=== PATIENT | male | born 1935 | race Caucasian/White ===

== ENCOUNTER → 2017-08-23 10:25 | Outpatient (CLI) | payer MEDICARE, OTHER, SELFPAY ==
[2017-08-23 12:13] LABS: Absolute Lymphocyte Count 1.14 X10^3/ul (0.83-4.51); Absolute Neutrophil Count 4.3 X10^3/uL (2.0-7.7); Basophil# 0.07 X10^3/uL; Basophil% 1.1 % (0-1); Eosinophil# 0.35 X10^3/uL; Eosinophils% 5.4 % (0-5); Lymphocyte # 1.14 X10^3/ul (4.0); Lymphocyte % 17.5 % (19-41); Mean Corp Hgb Conc 33.5 g/gl (32-36); Mean Corpuscular Hgb 30.7 pg (27.0-32.0); Mean Corpuscular Volume 91.6 fL (80-94); Mean Platelet Vol. 10.4 fl (6.2-12.0); Monocyte# 0.58 X10^3/uL; Monocyte% 8.9 % (0-10); Neutrophil % 66.2 % (47-70); Platelet Count 202 K/mm3 (150-450); RBC Distribution Width CV 15.2 % (11.6-14.6); RBC Distribution Width SD 50.6 fl (35.1-43.9); Red Blood Count 6.09 M/mm3 (4.6-6.2); White Blood Count 6.5 K/mm3 (4.4-11.0)
[2017-08-23 12:29] LABS: Hemoglobin A1c 5.7 % (4.2-6.3)
[2017-08-23 12:35] LABS: ALB/GLOB Ratio 1.4 RATIO (0.9-2.4); AST(SGOT) 25 U/L (15-37); Alanine Aminotransfer ALT/SGPT 45 U/L (16-61); Albumin, Serum 4.2 g/dL (3.2-5.0); Alkaline Phosphatase 69 U/L (45-117); Anion Gap 6 (5-15); BUN 20 mg/dL (7-18); BUN/Creat Ratio 18.7 RATIO (10-20); Calcium,Total 8.8 mg/dL (8.5-10.1); Chloride 103 mmol/L (98-107); Creatinine, Serum 1.07 mg/dL (0.70-1.30); EST Glomerular Filtration Rate 71 mL/min (>60); Est Glom Filt Rate - Afr Amer 85 mL/min (>60); Globulin 3.1 g/dL (2.2-4.2); Glucose 99 mg/dL (70-110); Protein, Total 7.3 g/dL (6.4-8.2); Sodium Level 140 mmol/L (136-145); T4 Free Direct 0.91 ng/dL (0.76-1.46); Thyroid Stim Hormone (TSH) 4.88 uIU/mL (0.358-3.74)
[2017-08-23 13:30] LABS: Hematocrit 55.8 % (40-54); POSITIVE COUNT NO; POSITIVE DIFFERENTIAL NO; POSITIVE MORPHOLOGY NO
[2017-08-23 14:16] LABS: Hemoglobin 18.7 g/dl (13.0-16.5)
== END ==
PROVIDERS: Family Provider Family Medicine; PCP Family Medicine; Visit Provider Family Medicine
DX: R73.01 Impaired fasting glucose (principal); I10 Essential (primary) hypertension; D75.1 Secondary polycythemia; E78.5 Hyperlipidemia, unspecified
CPT/HCPCS: 36415; 80053; 83036; 84439; 84443; 85025

== ENCOUNTER → 2017-08-23 10:45 | Outpatient (CLI) | payer MEDICARE, OTHER, SELFPAY ==
[2015-06-09 06:01] VITALS: BMI 30.9
[2015-06-09 09:00] VITALS: BP 123/72
[2015-06-09 11:57] VITALS: BP 118/75
--- NOTE | 2017-08-23 10:50 | RAD_ITS ---
STUDY: X-RAY - CERVICAL SPINE REASON FOR EXAM: Male, 81 years old. Neck pain for one month and tingling in the ear. TECHNIQUE: 5 view(s) of the cervical spine were obtained. COMPARISON: Prior comparison studies are not available for review at this time. FINDINGS: There are degenerative changes of the anterior atlantoaxial articulation. Normal odontoid process. There is straightening of the normal cervical lordosis. There is diffuse demineralization of the cervical spine. There is multilevel spondylosis of cervical spine. There is multi-level degenerative disc disease with multilevel disc space narrowing. There is multilevel degenerative arthropathy of the uncovertebral and facet joints. There are calcifications of the carotid bulbs. RAD/Cerv Spine 4 or 5 Views IMPRESSION: Multilevel degenerative disc disease and degenerative arthropathy of the cervical spine. No radiographic evidence of acute compression or displaced fracture. Electronically Signed: Samara Reyes MD at 19:42 EST , Service support ,
== END ==
PROVIDERS: Family Provider Family Medicine; PCP Family Medicine; Visit Provider Family Medicine
DX: R73.01 Impaired fasting glucose (principal); I10 Essential (primary) hypertension; D75.1 Secondary polycythemia; E78.5 Hyperlipidemia, unspecified; M54.2 Cervicalgia
CPT/HCPCS: 36415; 72050; 80053; 83036; 84439; 84443; 85025

== ENCOUNTER → 2018-05-29 15:05 | Outpatient (CLI) | payer MEDICARE, OTHER, SELFPAY ==
[2018-05-29 18:05] LABS: Absolute Lymphocyte Count 1.02 X10^3/ul (0.83-4.51); Absolute Neutrophil Count 5.5 X10^3/uL (2.0-7.7); Basophil# 0.04 X10^3/uL; Basophil% 0.5 % (0-1); Eosinophil# 0.16 X10^3/uL; Eosinophils% 2.2 % (0-5); Hematocrit 53.7 % (40-54); Hemoglobin 17.6 g/dl (13.0-16.5); Lymphocyte # 1.02 X10^3/ul (4.0); Lymphocyte % 13.7 % (19-41); Mean Corp Hgb Conc 32.8 g/gl (32-36); Mean Corpuscular Hgb 30.6 pg (27.0-32.0); Mean Corpuscular Volume 93.2 fL (80-94); Mean Platelet Vol. 10.5 fl (6.2-12.0); Monocyte# 0.63 X10^3/uL; Monocyte% 8.5 % (0-10); Neutrophil # 5.51 X10^3/uL (2.7-7.7); Neutrophil % 74.3 % (47-70); Platelet Count 211 K/mm3 (150-450); RBC Distribution Width CV 15.3 % (11.6-14.6); RBC Distribution Width SD 51.6 fl (35.1-43.9); Red Blood Count 5.76 M/mm3 (4.6-6.2); White Blood Count 7.4 K/mm3 (4.4-11.0)
[2018-05-29 18:16] LABS: CRP 5.11 mg/L (0.0-3.0); POSITIVE COUNT NO; POSITIVE DIFFERENTIAL NO; POSITIVE MORPHOLOGY NO
[2018-05-29 18:27] LABS: Erythrocyte Sedimentation Rate 10 mm/hr (0-20)
== END ==
PROVIDERS: Family Provider Family Medicine; PCP Family Medicine; Visit Provider Physician Assistant
DX: Z96.641 Presence of right artificial hip joint (principal)
CPT/HCPCS: 36415; 85025; 85652; 86140

== ENCOUNTER → 2018-06-09 14:02 | Outpatient (CLI) | payer MEDICARE, OTHER, SELFPAY ==
[2018-06-09 16:28] LABS: Anion Gap 11 (5-15); BUN 19 mg/dL (7-18); BUN/Creat Ratio 15.6 RATIO (10-20); Calcium,Total 9.3 mg/dL (8.5-10.1); Chloride 102 mmol/L (98-107); Creatinine, Serum 1.22 mg/dL (0.70-1.30); EST Glomerular Filtration Rate 61 mL/min (>60); Est Glom Filt Rate - Afr Amer 73 mL/min (>60); Glucose 117 mg/dL (74-106); Sodium Level 142 mmol/L (136-145); T4 Free Direct 0.89 ng/dL (0.76-1.46); Thyroid Stim Hormone (TSH) 2.54 uIU/mL (0.358-3.74)
== END ==
PROVIDERS: Family Provider Family Medicine; PCP Family Medicine; Visit Provider Family Medicine
DX: R94.6 Abnormal results of thyroid function studies (principal); I10 Essential (primary) hypertension
CPT/HCPCS: 36415; 80048; 84439; 84443

== ENCOUNTER → 2018-12-02 10:26 | Outpatient (CLI) | payer MEDICARE, OTHER, SELFPAY ==
[2018-12-02 12:29] LABS: Absolute Lymphocyte Count 1.06 X10^3/ul (0.83-4.51); Absolute Neutrophil Count 3.9 X10^3/uL (2.0-7.7); Basophil# 0.05 X10^3/uL; Basophil% 0.9 % (0-1); Eosinophil# 0.21 X10^3/uL; Eosinophils% 3.6 % (0-5); Hemoglobin 18.9 g/dl (13.0-16.5); Lymphocyte # 1.06 X10^3/ul (4.0); Lymphocyte % 18.2 % (19-41); Mean Corp Hgb Conc 33.4 g/gl (32-36); Mean Corpuscular Hgb 29.7 pg (27.0-32.0); Mean Corpuscular Volume 88.9 fL (80-94); Mean Platelet Vol. 10.3 fl (6.2-12.0); Monocyte# 0.52 X10^3/uL; Monocyte% 8.9 % (0-10); Neutrophil # 3.94 X10^3/uL (2.7-7.7); Neutrophil % 67.5 % (47-70); Platelet Count 203 K/mm3 (150-450); RBC Distribution Width CV 15.6 % (11.6-14.6); RBC Distribution Width SD 50.9 fl (35.1-43.9); Red Blood Count 6.37 M/mm3 (4.6-6.2); White Blood Count 5.8 K/mm3 (4.4-11.0)
[2018-12-02 12:43] LABS: Hematocrit 56.6 % (40-54)
[2018-12-02 12:44] LABS: POSITIVE COUNT NO; POSITIVE DIFFERENTIAL NO; POSITIVE MORPHOLOGY NO
[2018-12-02 13:00] LABS: ALB/GLOB Ratio 1.2 RATIO (0.9-2.4); AST(SGOT) 30 U/L (15-37); Alanine Aminotransfer ALT/SGPT 58 U/L (16-61); Albumin, Serum 4.2 g/dL (3.2-5.0); Alkaline Phosphatase 66 U/L (45-117); Anion Gap 7 (5-15); BUN 20 mg/dL (7-18); BUN/Creat Ratio 18.2 RATIO (10-20); Calcium,Total 8.7 mg/dL (8.5-10.1); Chloride 102 mmol/L (98-107); EST Glomerular Filtration Rate 68 mL/min (>60); Est Glom Filt Rate - Afr Amer 82 mL/min (>60); Globulin 3.4 g/dL (2.2-4.2); Glucose 97 mg/dL (74-106); Potassium 3.5 mmol/L (3.5-5.1); Protein, Total 7.6 g/dL (6.4-8.2); Sodium Level 138 mmol/L (136-145); T4 Free Direct 0.91 ng/dL (0.76-1.46); Thyroid Stim Hormone (TSH) 3.19 uIU/mL (0.358-3.74)
== END ==
PROVIDERS: Family Provider Family Medicine; PCP Family Medicine; Visit Provider Family Medicine
DX: I10 Essential (primary) hypertension (principal); R94.6 Abnormal results of thyroid function studies; E78.5 Hyperlipidemia, unspecified
CPT/HCPCS: 36415; 80053; 84439; 84443; 85025

== ENCOUNTER → 2019-06-09 09:38 | Outpatient (CLI) | payer MEDICARE, OTHER, SELFPAY ==
[2015-06-09 06:01] VITALS: BMI 30.9
[2019-06-09 12:34] LABS: Basophil# 0.11 X10^3/uL; Basophil% 1.8 % (0-1); Eosinophil# 0.26 X10^3/uL; Eosinophils% 4.3 % (0-5); Hemoglobin 19.2 g/dL (13.0-16.5); Lymphocyte % 18.4 % (19-41); Mean Corp Hgb Conc 32.6 g/dL (32-36); Mean Corpuscular Hgb 30.4 pg (27.0-32.0); Mean Corpuscular Volume 93.3 fL (80-94); Mean Platelet Vol. 10.1 fl (6.2-12.0); Monocyte# 0.42 X10^3/uL; NRBC Flagged by Analyzer 0 % (0-5); Neutrophil # 4.03 X10^3/uL (2.7-7.7); Neutrophil % 67.5 % (47-70); Platelet Count 201 K/mm3 (150-450); RBC Distribution Width CV 14.4 % (11.6-14.6); RBC Distribution Width SD 49.3 fl (35.1-43.9); Red Blood Count 6.31 M/mm3 (4.6-6.2)
[2019-06-09 12:44] LABS: Hematocrit 58.9 % (40-54)
[2019-06-09 12:46] LABS: Hemoglobin A1c 5.9 % (4.2-6.3)
[2019-06-09 12:54] LABS: ALB/GLOB Ratio 1.3 RATIO (0.9-2.4); AST(SGOT) 24 U/L (15-37); Alanine Aminotransfer ALT/SGPT 57 U/L (16-61); Albumin, Serum 4.2 g/dL (3.2-5.0); Alkaline Phosphatase 61 U/L (45-117); Anion Gap 9 (5-15); BUN 19 mg/dL (7-18); BUN/Creat Ratio 14.5 RATIO (10-20); Calcium,Total 8.9 mg/dL (8.5-10.1); Chloride 100 mmol/L (98-107); Creatinine, Serum 1.31 mg/dL (0.70-1.30); EST Glomerular Filtration Rate 56 mL/min (>60); Est Glom Filt Rate - Afr Amer 67 mL/min (>60); Free T3 2.7 pg/mL (2.18-3.98); Globulin 3.3 g/dL (2.2-4.2); Glucose 150 mg/dL (74-106); Potassium 3.5 mmol/L (3.5-5.1); Protein, Total 7.5 g/dL (6.4-8.2); Sodium Level 137 mmol/L (136-145); T4 Free Direct 0.89 ng/dL (0.76-1.46); Thyroid Stim Hormone (TSH) 4.07 uIU/mL (0.358-3.74)
[2019-06-10 11:57] LABS: Pathologist Review Reviewed
== END ==
PROVIDERS: Family Provider Family Medicine; PCP Family Medicine; Visit Provider Family Medicine
DX: D57.1 Sickle-cell disease without crisis (principal); R94.6 Abnormal results of thyroid function studies; D45 Polycythemia vera; I10 Essential (primary) hypertension; R73.01 Impaired fasting glucose
CPT/HCPCS: 36415; 80053; 83036; 84439; 84443; 84481; 85025

== ENCOUNTER 2019-07-08 06:03 | Day surgery (SDC) | payer MEDICARE, OTHER, SELFPAY ==
--- NOTE | 2019-07-07 18:24 | HP.PCM_ITS ---
History and Physical Date of Admission: 07/08/19 HISTORY AND PHYSICAL ? Ravin Agrawal 1935 ? ? REFERRING PHYSICIAN: ??Yulisa Romero MD ? CHIEF COMPLAINT: ??Consult (Colono f/u port consult) ? HPI: The patient is a 83 year old male with a diagnosis of?polycythemia. ?Ravin is currently planning to start undergoing therapeutic phlebotomy?and needs vascular access for treatment. ?The patient denies a prior history of central venous access. ? ? The patient is?left?hand dominant. ? ? The patient is being seen by me today at the request of ?Nick?for my opinion and advice regarding port placement for monthly therapeutic phlebotomy. ? Ravin notes recent issues relating to epigastric discomfort. ?He noted epigastric and left upper quadrant discomfort a few weeks previously. ?Then a few days ago the patient noted pain that awoke him up at 1 AM which lasted for only a few minutes in the right upper quadrant. ?He had noted eating a fatty meal earlier in the evening but did not equate or relate the 2 together. ?He denied nausea or vomiting. ?He notes no changes bowel habits or other difficulties. ?He does note a degree of dysphasia sometimes a solid food a specifically dry chicken. ? Ravin is a patient I am following for sessile polyp in the descending colon hepatic flexure region. ?I performed a laparoscopic right hemicolectomy with extended small bowel resection due to 2 adhesions of the small bowel into the pelvis from likely either missed appendicitis or diverticulitis on September 29, 2012. ?The pathology demonstrated: ? 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 ?Tubulovillous adenoma. ?Small intestine with serosal congestion, hemorrhage and changes consistent with ?adhesions. ?See Colon Cancer Summary below. ?COLON CANCER SUMMARY ?Specimen - terminal ileum, cecum, appendix and ascending colon. ?Procedure - right hemicolectomy. ?Specimen length - cecum with ascending colon 14 cm; small intestine 19 cm; ?appendix 5 cm in length and 0.3 cm in diameter. ?Tumor site - right (ascending) colon. ?Tumor size - 0.7 cm in greatest dimension. ?See Comment. ?Macroscopic tumor perforation - not identified. ?Histologic type - adenocarcinoma. ?Histologic grade - low grade (well differentiated). ?Histologic features suggestive of Microsatellite Instability - see Comment. ?Microscopic tumor extension - intramucosal carcinoma, invasion of lamina propria. ?Margins: ?Proximal margin - uninvolved by invasive carcinoma. ?Distal margin - uninvolved by invasive carcinoma. ?Circumferential (radial) or mesenteric margin - uninvolved by invasive carcinoma. ?Distance of invasive carcinoma from closest margin - the tumor is 9 cm away from the ?distal resection margin. ?Treatment effect - no prior treatment. ?Lymph-Vascular invasion - not identified. ?Perineural invasion - not identified. ?Tumor deposits - not identified. ?Type of polyp in which invasive carcinoma arose - villous adenoma. ?Lymph nodes: ?Number of lymph nodes examined - 21. ?Number of lymph nodes involved - 0. ?Distant metastasis - not applicable. ?Additional pathologic findings: ?- tubulovillous adenoma with focal high grade dysplasia (5 cm in greatest ?dimension). ?- small intestinal serosal congestion, hemorrhage, consistent with serosal ?adhesions. ?- appendix, fibrous luminal obliteration. ?Ancillary studies - (MSH2, MSH6, MLH1, P53, KI-67, Her2 louis) - see Comment. ?PATHOLOGIC STAGE: ?pTis (carcinoma in situ, invasion of lamina propria) N0 MX ? The above summary is in compliance with [employer] (CAP) Cancer Protocols Checklist and [place] [employer] on Cancer (AJCC), Staging Manual, 7th Ed. ? He was discharged on postoperative day 4 tolerating clear liquids. ?The patient then noted hiccups, fever and chills. ?He returned to the emergency department and had unremarkable and laboratory studies. ?He noticed additionally hiccups and overall failure to thrive, and vomiting. ?He return to my office on postoperative day 7. ?I admitted him to [facility] that day. ?CT scan of the abdomen and pelvis was obtained which demonstrated fluid collections around the anastomotic site and some free intra-abdominal fluid. ?This was deemed not be consistent with a drainable collection at presentation. ?The patient was admitted and given IV antibiotics. ?He had some mild improvement but had persistent leukocytosis and elevated to the level. ?Repeat CT scan was obtained 3 days later which now demonstrated increased what seemed to be free of fluid and a loculated collection consistent with an abscess in the perianastomotic area ? And underwent percutaneous drainage I would be postoperative day 11. ?Cultures returned as: ? BODY FLUID CULTURE ?Final ?10/16/12 ?Organism 1 ?ACHROMOBACTER XYLOSOXIDANS ?[place] ?3+ ?Organism 2 ?ENTEROCOCCUS FAECALIS ?[place] ?3+ ?Organism 3 ?RONNIE ALBICANS ?[place] ?2+ ? Aspiration of the free fluid returned as a sterile collection no growth was noted in the collection. ?The patient was discharged on IV antibiotics of Invanz and oral Diflucan. ? ? Ravin noted at follow-up visit from that event he was currently tolerating a diet and notes no fever. ?Post operative pain has been well controlled. ?The patient denies nausea. ?The patient`s appetite has been average but improving. ?His percutaneous drain has had minimal output for the last few days. ? ? The patient had a followup colonoscopy by Dr. Chance on May 29, 2013, which is entirely normal. The patient would be expected to have a followup colonoscopy at a 3-year interval but has developed 2 episodes of bright red rectal bleeding. The patient was seen by Dr. Chance last month. ?He has noted 2 episodes of bright red blood per rectum. ?Dr. Chance referred the patient to me for likely hemorrhoidal bleeding. ?The patient takes Plavix for coronary artery disease. ? I performed banding of his internal hemorrhoid on May 19, 2015. ?The patient presented to [facility] on June 07 with significant blood per rectum. ?The patient's concern was this was bleeding from the hemorrhoidal banding site. ?He underwent unprepped colonoscopy on June 08, 2015. ?This demonstrated blood and clots up to 30 cm and due to it being unprepped I was unable to advance the scope beyond that point. ?The patient then underwent bowel prep and on June 09, 2015 had an unremarkable colonoscopy. ?He was discharged from the hospital. ? I performed upper endoscopy on June 14, 2015. ?This demonstrated mild gastritis and mild reflux changes. ?I recommended the patient be maintained on a proton pump inhibitor but did not feel this demonstrated an obvious source of what seemed to be a more significant bleed.? ? I performed upper and lower endoscopy on June 30, 2019. ?Upper endoscopy demonstrated was felt to mild gastritis and distal esophageal inflammation consistent with reflux. ?Colonoscopy demonstrated a clean anastomosis. ?Diverticula but otherwise was unremarkable. ? ? Pathology demonstrated: ? FINAL DIAGNOSIS 1. Stomach, antrum, biopsy (A) - Gastric mucosa with no diagnostic alteration. - No morphologic evidence of H. pylori organisms on routine stain. 2. Esophagus, distal, biopsy (B) - Reactive esophageal squamous mucosa with scattered eosinophils, consistent with reflux esophagitis (up to 2 eosinophils per high power field). 3. Esophagus, mid, biopsy (C) - Esophageal squamous mucosa with no diagnostic alteration. - No evidence of eosinophilic esophagitis. ? KL/kr 07/01/2019 ? ? ? PAST MEDICAL HISTORY PAST MEDICAL HISTORY Diagnosis Date ? Arrhythmia ? ? Backache, unspecified ? ? Benign neoplasm of colon ? ? pt states found small cancer area, all removed by surg ? Blood dyscrasia ? ? CAD (coronary artery disease) ? ? Chest pain, unspecified ? ? Essential hypertension, benign ? ? OA (osteoarthritis) ? ? PRINCE (obstructive sleep apnea) ? ? Paroxysmal ventricular tachycardia (HCC) ? ? RVOT Ablation 1995 ? Pure hypercholesterolemia ? ? Rosacea ? ? Snoring ? ? ? PAST SURGICAL HISTORY PAST SURGICAL HISTORY Procedure Laterality Date ? CARDIAC CATH ? 03/23/10 ? 4 stents ? COLONOSCOP W/ OR W/O BRSH SPEC ? 07/08/2012 ? Colonoscopy ? COLONOSCOP W/ OR W/O BRSH SPEC ? 05/29/13 ? Colonoscopy ? COLONOSCOP W/ OR W/O BRSH SPEC ? 06/09/15 ? diverticula, no obvious bleeding source ? COLONOSCOP W/ OR W/O BRSH SPEC ? 06/30/2019 ? Colonoscopy ? EGD W/O OR W/BRUSH/WASH ? 05/29/13 ? EGD ? EGD W/O OR W/BRUSH/WASH ? 06/30/2019 ? EGD ? PAST SURGICAL HISTORY OF ? 12/18/1950 ? bilateral slipped capital femoral epiphysis ? PAST SURGICAL HISTORY OF ? 12/24/1950 ? right hip pinning ? PAST SURGICAL HISTORY OF ? 11/16/1990 ? ?heart cath ? PAST SURGICAL HISTORY OF ? 08/04/2002 ? right cataract surgery ? PAST SURGICAL HISTORY OF ? ? ? ablation - early [id number] due to arrythmia ? PAST SURGICAL HISTORY OF ? 03/26/2012 ? Left hip revision ? PAST SURGICAL HISTORY OF ? 09/04/2012 ? EYE SURGERY, partial cornia transplant ? PAST SURGICAL HISTORY OF ? 09/2012 ? colon resection ? PAST SURGICAL HISTORY OF ? 03/31/2014 ? keratoplasty OS ? REMOVE TONSILS/ADENOIDS,12+ Y/O ? 1949 ? REMV CATARACT EXTRACAP,INSERT LENS ? OD 2001 or 2003 ? Phaco With Iol ? REVISE MEDIAN N/CARPAL TUNNEL SURG ? 10/05/2011 ? Carpal tunnel decomp right ? SIGMOIDOSCOPY FLEX DIAG ? 06/08/15 ? blood clot to 35cm ? TOTAL HIP REPLACEMENT ? 08/25/1990 ? Hip replacement, total, left ? TOTAL HIP REPLACEMENT ? 05/26/2003 ? Hip replacement, total, right ? ? CURRENT MEDICATIONS Current Outpatient Medications Medication Sig Dispense Refill ? lutein-zeaxanthin 25-5 mg cap Take by mouth once daily. ? ? ? aspirin, enteric coated (ASPIRIN, ENTERIC COATED) 81 mg EC tablet Take 81 mg by mouth once daily. ? ? ? hydrochlorothiazide (HYDRODIURIL, ESIDRIX) 25 mg tablet Take 1 tablet by mouth once daily. 90 tablet 3 ? atenolol (TENORMIN) 50 mg tablet Take 0.5 tablets by mouth twice daily. 90 tablet 3 ? pravastatin (PRAVACHOL) 10 mg tablet Take 1 tablet by mouth once daily. 90 tablet 3 ? Magnesium Oxide 250 mg tab Take ?by mouth once daily. ? ? ? Volant-3 Fatty Acids (FISH OIL) 500 mg cap Take 1 capsule by mouth once daily. ? ? ? melatonin 1 mg tab Take 1 mg by mouth daily at bedtime. ? ? ? Cholecalciferol, Vitamin D3, 1,000 unit cap Take 2 capsules by mouth once daily. ? 0 ? ?coenzyme Q10 (COQ-10) 100 mg cap Take 1 capsule by mouth once daily. ? 0 ? B Complex Vitamins (B COMPLEX) ORAL TbER Take 1 tablet by mouth once daily. ? 0 ? CHLORPHENIRAMINE 4 MG TAB as necessary 0 0 ? cyanocobalamin(VITAMIN B-12 1,000 MCG TAB) Take one(1) tablet weekly. 0 0 ? No current facility-administered medications for this visit.? ? ALLERGIES:?Keflex [Cephalexin]; Morphine (Pf); Azithromycin; Cyclopropane; Dilaudid [Hydromorphone]; Gluten; Iv Contrast [Contrast Dye]; Nsaids (Non- Steroidal Anti-Inflammatory Drug); Simvastatin; Sodium Pentathal [Thiopental]; Aspirin; Erythromycin; Lactose Intolerance [Lactase]; Penicillins ? PERSONAL HISTORY:? SOCIAL HISTORY Social History ? Tobacco Use ? Smoking status: Never Smoker ? Smokeless tobacco: Never Used Substance Use Topics ? Alcohol use: Yes ? ? Comment: occasionally, 2 times a year ? Drug use: No ? FAMILY HISTORY:? FAMILY HISTORY FAMILY HISTORY Problem Relation Age of Onset ? Hypertension Father ? ? Stroke Father ? from ? SSS ?72 ? Heart Father ? ? Kidney Disease Father ? ? Stroke Maternal Grandfather ? ? Heart Paternal Grandfather ?[place] ? Osteoporosis Mother ? ? Breast Cancer Mother ?masectomy, angina, diverticulosis, glaucoma ? Cataract Mother ? ? Hypertension Mother ? ? Cataract Other ?sister Fuchs dystrophy ? COPD Sister ? ? REVIEW OF SYMPTOMS: ??The review of systems data was entered by the nurse and reviewed by me ? There are no exam notes on file for this visit. REVIEW OF SYSTEMS:?- recent ?General:???The patient denies fatigue, denies weight loss, NOTES weight gain, denies feeling hot, and denies feelings of cold. ?Eyes: ?The patient denies glaucoma, NOTES eye injury/surgery, wears glasses or contacts. ?Ear/Nose/Throat: ?The patient NOTES allergies, denies hayfever, NOTES ear infections, and denies bloody noses. ?Cardiovascular: ?The patient denies chest pain, NOTES heart disease, NOTES high blood pressure, NOTES high cholesterol, and denies poor circulation. ?Respiratory: ?The patient denies tuberculosis, denies pneumonia, denies frequent cough, denies shortness of breath, and denies coughing up blood. ?Gastrointestinal: ?The patient denies difficulty swallowing, NOTES acid reflux, denies ulcers, denies jaundice/hepatitis, denies gallbladder problems, denies vomiting, denies black or tarry stools, NOTES hemorrhoids, NOTES bleeding from rectum,denies diverticulitis, NOTES constipation, NOTES diarrhea, denies loss of stool control, and denies hernias. ?Kidney/Bladder: ?The patient denies kidney stones, NOTES urine infections, and denies bloody urine. ?Skin: ?The patient denies a history of skin cancer, denies bleeding/changing moles, and NOTES a history of skin rash. ?Neurologic: ?The patient denies a history of epilepsy/convulsions, NOTES headaches, denies head/spinal injuries, and denies stroke/TIA. ?Psychiatric: ?The patient denies psychiatric medications, denies depression, and denies voices. ?Endocrine: ?The patient denies thyroid disorders, denies diabetes, and NOTES hormonal problems. ?Hematologic: ?The patient denies a history of bruising, denies bleeding, and denies anemia. ?Infections: ?The patient NOTES a history of measles and mumps, denies rheumatic fever, and denies sexually transmitted diseases. ?Musculoskeletal: ?The patient denies back pain/injury, NOTES back problems, denies sciatica, NOTES knee/foot trouble, denies arthritis, or denies gout. ? PHYSICAL EXAMINATION: ? General: ?The patient is 83 year old male, well nourished, well hydrated in no acute distress. ?The patient is oriented to time, place, and person. ? VITALS:?Blood pressure 142/80, pulse 79, temperature 36.6 ?C (97.9 ?F), height 176.5 cm (5' 9.5), weight 97.2 kg (214 lb 3.2 oz), SpO2 94 %.?Body mass index is 31.18 kg/m?.? ? HEENT: ?Normal cephalic, ataumatic, pupils are equally round, sclera are anicteric, mucous membranes are moist, oropharynx is clear. ?Neck has no masses, asymmetry or lymphadenopathy. ?Thyroid is unremarkable. ? Respiratory: ?Clear to auscultation and percussion. ?Normal respiratory excursion and pattern. ? Cardiac: ?Examination is regular rate and rhythm. ? Abdominal exam: ?Soft, nontender, ?with no palpable masses. ?No hepatosplenomegaly. ?No palpable hernias. ? Rectal exam:??exam deferred ? Extremities: ?no clubbing, cyanosis or edema. ?No adenopathy. ? Other: ? ? LABORATORY VALUES: As Noted ? RADIOLOGIC STUDIES: ?As Noted ? Assessment ? IMPRESSION:??Polycythemia, need for IV access ? PLAN: ??I plan to perform a right internal jugular?port a cath placement. ?The planned surgical procedure was discussed extensively with the patient. ?The risks, benefits, anticipated outcomes and possible complications were mentioned. ?My staff has also explained the procedure in understandable terms and the patient was given the option to take printed material concerning the planned procedure. ?The patient had the opportunity to ask questions concerning the planned procedure. ?The patient freely consents to the planned procedure. ? Planned Procedure:???right??Internal Jugular Portacath - [id number], Ultrasound for vascular access - 68683-914-50 and Fluoroscopic for vascular access - 90727-409-49 ? Patient Weight ?Last 1 Encounter Wt Readings: ???Date: ?Wt: ???07/07/2019 ??97.2 kg (214 lb 3.2 oz) ? Antibiotic:???clindamycin 900mg IVPB publications sales representative to OR ? Planned Anesthetic:?MAC with local? I?do not?plan to access the port at the time of surgery. ? 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 Rony Beltrán MD
[2019-07-08] VITALS (8 sets, daily range): BP systolic 135–166; BP diastolic 77–89; PULSE 60–70; RESP 16; TEMP 36.4–36.7; O2SAT 93–94; BMI 31.1
[2019-07-08] MEDS: Bupivacaine 0.5% PF 10 ML VIAL (08:05)
--- NOTE | 2019-07-08 08:32 | DCINST_ITS ---
Discharge Diet: No Restrictions - Pain medication may cause nausea. You should typically eat light foods as you take your pain medication. Discharge Activity: Return to Normal Activity, May Shower - with the bandage in place 1-2 days after surgery. DO NOT SHOWER WHEN YOUR PORT IS ACCESSED. Additional Activity Instructions:: May not drive, work with heavy equipment, or sign legal documents for [address] if you are no longer taking narcotic pain medications. You may drive when you are no longer taking pain medications. Additional Dressing/Incision Instructions:: Leave the bandage on for 2-3 days. When you remove the bandage, leave the steri-strips intact until they fall off. Allergies/Adverse Reactions: Allergies hydromorphone HCl [From Dilaudid] Allergy (Verified 06/07/15 00:53) Other thiopental Allergy (Verified 06/07/15 00:53) Anaphylaxis aspirin Adverse Reaction (Verified 06/07/15 00:53) Upset Stomach azithromycin Adverse Reaction (Verified 06/07/15 00:53) Upset Stomach cephalexin monohydrate [From Keflex] Adverse Reaction (Verified 06/07/15 00:53) Hives erythromycin base Adverse Reaction (Verified 06/07/15 00:53) Diarrhea gluten Adverse Reaction (Verified 06/07/15 00:53) Upset Stomach lactose Adverse Reaction (Verified 06/07/15 00:53) Upset Stomach morphine Adverse Reaction (Verified 06/07/15 00:53) Hives NSAIDS (Non-Steroidal Anti-Inflamma Adverse Reaction (Verified 06/07/15 00:53) Upset Stomach Penicillins Adverse Reaction (Verified 06/07/15 00:53) Diarrhea simvastatin Adverse Reaction (Verified 06/07/15 00:53) Pain in joints CYCLOPROPANE Allergy (Uncoded 06/07/15 00:53) Other IV CONTRAST Adverse Reaction (Uncoded 06/07/15 00:53) Hives Medications to take at Discharge Atenolol [Tenormin (beta david)] 25 mg PO BID 06/07/15 B Complex with Vitamin C [B-Complex Plus Vitamin C] 1 each PO DAILY 06/07/15 Cholecalciferol (VIT D3) [Vitamin D3] 1,000 unit PO TUTH 06/07/15 Cyanocobalamin (Vitamin B-12) [B-12] 1,000 mcg PO TH 06/07/15 Hydrochlorothiazide [Hctz] 25 mg PO DAILY 06/07/15 Lipase/Protease/Amylase [Pancrelipase Dr 5,000 Unit Cap] 1 each PO TID PRN 06/07/15 Magnesium Oxide [Magnesium] 250 mg PO DAILY 06/07/15 Fish Oil/Dha/Epa [Fish Oil 1,200 mg Fish Oil] 1 ea PO DAILY 07/07/19 Lutein/Zeaxanthin [Lutein-Zeaxanthin 25-5 mg Sfgl] 1 ea PO DAILY 07/07/19 Pravastatin Sodium 10 mg PO QHS 07/07/19 Ubidecarenone [Coq-10] 100 mg PO DAILY 07/07/19 Oxycodone HCl/Acetaminophen [Percocet 5/325] 1 tab PO Q4H PRN PRN 3 Days #6 tab 07/08/19 The following prescriptions were given: Oxycodone HCl/Acetaminophen [Percocet 5/325] 1 tab PO Q4H PRN PRN 3 Days #6 tab PRN Reason: Pain Prescription Printed Primary Care Physician: Bello Boyd MD [Primary Care Provider] - Test Results: Test results from this visit will be discussed in further detail at your follow- up appointment, if applicable. Please Follow Up With: Rony Beltrán MD - [phone] When: Please plan to follow up in 7 days in the office.
--- NOTE | 2019-07-08 08:32 | PCM.OPRPT ---
Report of Operation Date of Procedure: 07/08/19 Pre-Operative Diagnosis: polycythemia Post-Operative Diagnosis: polycythemia, successful right IJ port Surgery/Procedure Performed:: right IJ portacath with fluoroscopy and ultrasound guidance recruitment and outreach assistant: None Type of Anesthesia:: Local MAC Anesthesiologist: Maikel Lemus - ASA3 Specimen's removed: none Estimated Blood Loss (mL): <10 Fluids Replaced: 600 Description of Procedure: The patient was brought to the operating suite. The right site was marked in the holding area and the patient concurred this was the planned operative site. Sign was performed verifying patient, site, position, skip antibiotic prophylaxis-2 g of Ancef and DVT prophylaxis with SCDs. Following IV sedation, the neck and chest were prepped and draped in the usual fashion. Timeout was performed verifying patient, site, position. Local anesthetic was injected and ultrasound was used to identify the jugular vein. A pilot boat operator needle was inserted to the jugular vein under ultrasound guidance with return of venous blood. Next, under ultrasound guidance, a Seldinger needle was used to access the right/left internal jugular vein without difficulty. Under fluoroscopic control, a guidewire was inserted and advanced the SVC RA region. Local anesthetic was injected and incision made and pocket created for the port site. Next the catheter was tunneled from the wire site incision to the port site incision. Under fluoroscopic control introducer sheath and dilator were inserted over the wire. The wire and dilator removed. The catheter was fed through the introducer suture sheath and adjusted to the SVC RA region. There was good return of venous blood and easy inflow of saline through the system. Fluoroscopy demonstrated good positioning of the catheter. Next the catheter was cut to length affixed to the port with the locking ring and secured in the pocket with 2-2-0 Prolene sutures. Subcutaneous fat closed with interrupted 3-0 Vicryl suture. Skin closed with 4-0 Biosyn interrupted and running subcuticular sutures. Fluoroscopy demonstrated good position of the system. The port was accessed. There was good return of venous blood. Inflow of saline was easy. The port was then flushed with 2-3 cc of 100 unit per heparin solution. A dressing was applied. The patient was brought to recovery room in stable condition. Grafts/Implants Used: powerport [id number] lot [id number] exp 02/19/2020 - Admit VTE Documentation VTE Present on Admission: No VTE Mechan Device Prophylaxis: SCD's VTE Pharm Prophylaxis ordered?: No
--- NOTE | 2019-07-08 09:11 | RAD_ITS ---
STUDY: X-RAY CHEST REASON FOR EXAM: Male, 83 years old. Follow-up after recent port placement. TECHNIQUE: Single AP portable view of the chest. COMPARISON: February 08, 2017. FINDINGS: Right-sided Mediport catheter is present in the internal jugular vein and the tip of the catheter is at the cavoatrial junction. The lungs are expanded. There is mild prominence of bronchovascular markings. There is no demonstrated pleural abnormality. There is borderline cardiomegaly. Normal mediastinum and daniel. Normal visualized pulmonary arteries. There is atherosclerotic calcification of the aortic arch with tortuosity. There are diffuse degenerative changes of the visualized thoracic spine. Normal visualized ribs, clavicles, and shoulders. There is no demonstrated abnormality of the visualized soft tissue structures of the upper abdomen. RAD/Chest 1 View (Portable) IMPRESSION: Mild cardiomegaly and pulmonary congestion. Electronically Signed: Samara Reyes MD at 10:13 EST , Service support ,
== END 2019-07-08 10:04 | disposition home or self-care (01) ==
LOC: SDC 06:05 → AC 06:06
PROVIDERS: Family Provider Family Medicine; PCP Family Medicine; Referring Provider Surgery; Visit Provider Surgery
PROC: (CPT 36561; principal; 2019-07-08 07:15)
DX: D75.1 Secondary polycythemia (principal); Z45.2 Encounter for adjustment and management of vascular access device; I25.10 Atherosclerotic heart disease of native coronary artery without angina pectoris; I47.2 Ventricular tachycardia; I10 Essential (primary) hypertension; E78.00 Pure hypercholesterolemia, unspecified; G47.33 Obstructive sleep apnea (adult) (pediatric); Z79.02 Long term (current) use of antithrombotics/antiplatelets; Z79.82 Long term (current) use of aspirin; Z79.899 Other long term (current) drug therapy; Z88.8 Allergy status to other drugs, medicaments and biological substances; Z88.5 Allergy status to narcotic agent; Z88.0 Allergy status to penicillin; Z88.1 Allergy status to other antibiotic agents; Z88.6 Allergy status to analgesic agent; Z96.641 Presence of right artificial hip joint; Z90.49 Acquired absence of other specified parts of digestive tract; K21.9 Gastro-esophageal reflux disease without esophagitis
CPT/HCPCS: 36561; 76937; 71045; 77001; J7120; C1788

== ENCOUNTER → 2019-12-07 | Outpatient (CLI) | payer MEDICARE, OTHER, SELFPAY ==
[2019-08-06 14:40] VITALS: BMI 31.6
[2019-12-07 12:20] LABS: Absolute Lymphocyte Count 1.48 X10^3/uL (0.83-4.51); Absolute Neutrophil Count 3.6 X10^3/uL (2.0-7.7); Basophil# 0.09 X10^3/uL; Basophil% 1.5 % (0-1); Eosinophil# 0.28 X10^3/uL; Eosinophils% 4.6 % (0-5); Hematocrit 51.1 % (40-54); Hemoglobin 15.7 g/dL (13.0-16.5); Lymphocyte # 1.48 X10^3/ul (4.0); Lymphocyte % 24.1 % (19-41); Mean Corp Hgb Conc 30.7 g/dL (32-36); Mean Corpuscular Volume 84.5 fL (80-94); Mean Platelet Vol. 10.4 fl (6.2-12.0); Monocyte# 0.65 X10^3/uL; Monocyte% 10.6 % (0-10); NRBC Flagged by Analyzer 0 % (0-5); Neutrophil # 3.59 X10^3/uL (2.7-7.7); Neutrophil % 58.5 % (47-70); Platelet Count 256 K/mm3 (150-450); RBC Distribution Width CV 15.5 % (11.6-14.6); RBC Distribution Width SD 44.8 fl (35.1-43.9); Red Blood Count 6.05 M/mm3 (4.6-6.2); White Blood Count 6.1 K/mm3 (4.4-11.0)
[2019-12-07 12:41] LABS: ALB/GLOB Ratio 1.2 RATIO (0.9-2.4); AST(SGOT) 21 U/L (15-37); Alanine Aminotransfer ALT/SGPT 40 U/L (16-61); Albumin, Serum 4.1 g/dL (3.2-5.0); Alkaline Phosphatase 54 U/L (45-117); Anion Gap 7 (5-15); BUN 23 mg/dL (7-18); BUN/Creat Ratio 19.3 RATIO (10-20); Calcium,Total 9.1 mg/dL (8.5-10.1); Chloride 106 mmol/L (98-107); Cholesterol 151 mg/dL (200); Creatinine, Serum 1.19 mg/dL (0.70-1.30); EST Glomerular Filtration Rate 62 mL/min (>60); Est Glom Filt Rate - Afr Amer 75 mL/min (>60); Free T3 2.6 pg/mL (2.18-3.98); Globulin 3.5 g/dL (2.2-4.2); Glucose 110 mg/dL (74-106); High Density Lipoprotein 29 mg/dL; Potassium 3.9 mmol/L (3.5-5.1); Protein, Total 7.6 g/dL (6.4-8.2); Sodium Level 141 mmol/L (136-145); T4 Free Direct 0.84 ng/dL (0.76-1.46); Thyroid Stim Hormone (TSH) 3.46 uIU/mL (0.358-3.74); Triglycerides 218 mg/dL; Very Low Density Lipoprotein 44 mg/dL (5-40)
== END | disposition home or self-care (01) ==
LOC: BFHLAB 10:22
PROVIDERS: PCP Family Medicine; Visit Provider Family Medicine
DX: I10 Essential (primary) hypertension (principal); R94.6 Abnormal results of thyroid function studies; E78.5 Hyperlipidemia, unspecified; D45 Polycythemia vera; R73.01 Impaired fasting glucose
CPT/HCPCS: 36415; 80053; 80061; 83036; 84439; 84443; 84481; 85025

== ENCOUNTER → 2020-03-18 | Outpatient (CLI) | payer MEDICARE, OTHER, SELFPAY ==
[2020-03-04 08:32] VITALS: BMI 30.2
--- NOTE | 2020-03-18 08:23 | STRESSREP_ITS ---
Stress Test Report Date: 03-18-2020 Procedure: Pharmacologic stress nuclear imaging study Indications: Chest pain; CAD; PCI; cardiac dysrhythmia; EPS/RFA Consent: Per the patient Procedure: The patient underwent pharmacologic (Regadenoson) evaluation with a peak heart rate of 91 beats per minute (66 %predicted maximal heart rate) and a peak blood pressure of 134/72 mmHg. The baseline ECG demonstrated sinus rhythm; right bundle branch block pattern. The peak pharmacologic ECG demonstrated no obvious ECG changes. There were no cardiac dysrhythmias pretest, during pharmacologic infusion, or recovery. There was no complaint of chest discomfort during pharmacologic infusion or recovery. The examination was discontinued secondary to completion of protocol. Impression: 1. Pharmacologic (Regadenoson) evaluation 2. Peak pharmacologic ECG with no obvious ECG changes. 3. There were no cardiac dysrhythmias pretest, during pharmacologic infusion, or recovery. 4. Nuclear images pending Myocardial perfusion imaging study: Technique: The patient was injected with 14.5 millicuries of technetium 99m Cardiolite and subsequently rest SPECT Cardiolite nuclear imaging was obtained in the horizontal long, vertical long, and short axis views. The patient underwent pharmacologic (Regadenoson) evaluation with a peak heart rate of 91 beats per m inute (66 % percent predicted maximal heart rate) and a peak blood pressure of 134/72 mmHg. The patient was injected with 44.7 millicuries of technetium 99m Cardiolite and subsequently stress SPECT Cardiolite nuclear imaging was obtained in the horizontal long, vertical long, and short axis views. A gated Cardiolite study at peak stress was obtained. Interpretation: Rest and stress SPECT Cardiolite nuclear imaging status post realignment, normalization, and attenuation correction demonstrate the appearance of diminished myocardial perfusion/tracer uptake in portions of the basal towards distal inferior segments without significant change between rest and stress. There is diminished end systolic thickening and brightening in the aforementioned areas. The gated Cardiolite study demonstrates myocardial thickening and inward wall motion. The reported LVEF is 57 %. Impression: 1. Rest and stress SPECT Cardiolite nuclear imaging demonstrate myocardial perfusion changes potentially compatible with an area of previous myocardial injury/infarction, however, the effects of soft tissue attenuation/artifact cannot necessarily be excluded, with no myocardial perfusion changes considered diagnostic for associated stress-induced myocardial ischemia. 2. The gated Cardiolite study reports an LVEF of 57 %. This note was generated with [employer] software. It may contain incorrect words, spelling, and punctuation that were not noted in checking the note before signing.
== END | disposition home or self-care (01) ==
LOC: CVS 06:14
PROVIDERS: PCP Family Medicine; Referring Provider Nurse Practitioner Family; Visit Provider Nurse Practitioner Family
DX: R07.9 Chest pain, unspecified (principal); I25.10 Atherosclerotic heart disease of native coronary artery without angina pectoris; I47.1 Supraventricular tachycardia; Z95.5 Presence of coronary angioplasty implant and graft
CPT/HCPCS: 78452; 93017; A9500; A4216; J2785

== ENCOUNTER → 2020-04-01 | Outpatient (CLI) | payer MEDICARE, OTHER, SELFPAY ==
[2020-03-04 08:32] VITALS: BMI 30.2
--- NOTE | 2020-04-01 12:58 | ECHOD_ITS ---
Reason For Study: CAD/ASHD Procedure This was a 2D Doppler, Color Flow transthoracic echocardiogram. The exam was of adequate technical quality. Exam performed in department. Left Ventricle Normal LV size. Left ventricular systolic function is normal. The estimated ejection fraction is 60 %. No evidence for diastolic dysfunction. No regional wall motion abnormalities noted. Right Ventricle Normal RV size. Normal systolic function. Atria Normal left atrium. Normal right atrium. No doppler evidence for ASD. Mitral Valve There is no mitral annular calcification. Mild diffuse mitral valve thickening. Mild (1+) mitral valve insufficiency. Tricuspid Valve Normal tricuspid valve. Trivial tricuspid valve insufficiency. Right ventricular systolic pressure estimated to be 24 mmHg. Aortic Valve Trisinus/trileaflet aortic valve. Mild focal aortic valve calcification. Trivial aortic valve insufficiency. Pulmonic Valve The pulmonic valve is not well visualized. Great Vessels Normal sized aortic root. Pericardium/Pleural No pericardial effusion. MMode/2D Measurements & Calculations LVIDd: 4.6 cm IVSd: 1.0 cm Ao root diam: 3.4 cm LVIDs: 3.1 cm LVPWd: 1.1 cm RVDd: 4.1 cm FS: 32.3 % LAV(MOD-bp): 52.2 ml LVAd ap4: 32.7 cm2 SV(MOD-sp4): 63.2 ml LAV(MOD-bp) Indexed: 25.0 ml/m2 EDV(MOD-sp4): 106.1 ml LAV(MOD-sp2): 54.0 ml EDV(sp4-el): 108.6 ml LAV(MOD-sp4): 47.6 ml LVAs ap4: 18.9 cm2 ESV(MOD-sp4): 42.9 ml ESV(sp4-el): 42.1 ml EF(MOD-sp4): 59.5 % EF(sp4-el): 61.3 % SV(sp4-el): 66.5 ml LA A4 area: 17.0 cm2 LA dimension(2D): 3.8 cm RA A4 area: 17.5 cm2 Time Measurements MV dec time: 0.25 sec Doppler Measurements & Calculations MV E max mateo: 56.6 cm/sec Lat Peak E' Mateo: 7.2 cm/sec Med Peak E' Mateo: 7.1 cm/sec MV A max mateo: 83.6 cm/sec E/E' lat: 7.8 E/E' med: 8.0 MV E/A: 0.68 Ao V2 max: 117.5 cm/sec AI max mateo: 304.3 cm/sec LV V1 max: 93.4 cm/sec Ao max P.5 mmHg AI max P.0 mmHg LV V1 max P.5 mmHg AI dec slope: 171.4 cm/sec2 AI P1/2t: 520.0 msec PA V2 max: 95.7 cm/sec TR max mateo: 229.7 cm/sec TR max P.1 mmHg Interpretation Summary Left ventricular systolic function is normal. The estimated ejection fraction is 60 %. Mild diffuse mitral valve thickening. Mild (1+) mitral valve insufficiency. Trivial tricuspid valve insufficiency. Mild focal aortic valve calcification. Trivial aortic valve insufficiency. Right ventricular systolic pressure estimated to be 24 mmHg. No evidence for diastolic dysfunction. Ordering Physician: Adis Cochran Referring Physician: IVON KAISER Performed By: Carine Arias RDCS
== END | disposition home or self-care (01) ==
PROVIDERS: PCP Family Medicine; Referring Provider Internal Medicine Cardiovascular Disease; Visit Provider Internal Medicine Cardiovascular Disease
DX: I25.10 Atherosclerotic heart disease of native coronary artery without angina pectoris (principal); Z95.5 Presence of coronary angioplasty implant and graft
CPT/HCPCS: 93306

== ENCOUNTER 2021-02-02 10:22 | Emergency (ER) | payer MEDICARE, OTHER, SELFPAY ==
[2021-02-02 10:23] VITALS: BP 144/72; PULSE 67; RESP 18; TEMP 36.2; O2SAT 96; BMI 29.5
--- NOTE | 2021-02-02 10:47 | CDU_ITS ---
Reason For Study: VISION LOSS Rt. Velocities/BP Lt. Velocities/BP Prox CCA 104.7/8.2 cm/sec. Prox CCA 85.8/0.0 cm/sec. Mid CCA 93.0/8.2 cm/sec. Mid CCA 91.1/5.3 cm/sec. Dist CCA 77.3/5.6 cm/sec. Dist CCA 80.2 cm/sec. Prox ICA 44.2/9.0 cm/sec. Prox ICA 74.7/10.8 cm/sec. Mid ICA 51.9/10.3 cm/sec. Mid ICA 71.0/12.6 cm/sec. Dist ICA 54.7/11.2 cm/sec. Dist ICA 67.4/14.4 cm/sec. Rt. ICA/CCA = 54.7/104.7=0.5. Lt. ICA/CCA = 74.7/91.1=0.8. Prox ECA 116.8/0.0 cm/sec. Prox ECA 91.1/0.0 cm/sec. Rt. Vert. 26.3/8.5 cm/sec. Lt. Vert. 25.2/6.0 cm/sec. Right Extracranial There is intimal thickening but no significant atherosclerotic plaque noted in the right common carotid artery. There is no significant atherosclerotic plaque noted in the right external carotid artery. There is heterogeneous, irregular atherosclerotic plaque noted in the right bulb. Left Extracranial There is homogeneous, smooth atherosclerotic plaque noted in the left common carotid artery. There is heterogeneous, smooth atherosclerotic plaque noted in the left internal carotid artery. There is intimal thickening but no significant atherosclerotic plaque noted in the left external carotid artery. Antegrade flow is noted in the left vertebral artery. VL/Carotid Duplex Ultrasound Interpretation Summary Minimal plaque of the proximal right internal carotid artery with a less than 5 0% stenosis Less than 50% stenosis right external carotid artery Minimal plaque at the proximal left internal carotid artery with less than 50% stenosis Less than 50% stenosis left external carotid artery Patent antegrade vertebral arteries bilaterally Ordering Physician: Maikel Simpson Referring Physician: ralph Clemente Performed By: Yohana Small RVT, RDCS and Student
--- NOTE | 2021-02-02 10:47 | CT_ITS ---
STUDY: CT BRAIN WITHOUT CONTRAST REASON FOR EXAM: Male, 85 years old. Vision loss in the right eye. RADIATION DOSAGE (If Supplied By Facility): CTDIvol = ( 44.99 ) mGy, DLP = ( 812.98 ) mGycm TECHNIQUE: Transaxial CT imaging of the brain was performed without administration of intravenous contrast material. Individualized dose optimization techniques were used for this CT. COMPARISON: No relevant priors. FINDINGS: Normal soft tissue structures. Normal calvarium. There is mild cerebral atrophy with widening of the extra-axial spaces and ventricular dilatation. There are areas of decreased attenuation within the white matter tracts of the supratentorial brain, consistent with microvascular disease changes. Normal basal ganglia and thalami. Normal brainstem. Normal cerebellum. There is no intracranial hemorrhage. There are no findings of an acute ischemic infarction. Atherosclerotic plaque formation of the cavernous portions of the internal carotid arteries bilaterally. Normal visualized paranasal sinuses. CT/Brain/Head without Contrast IMPRESSION: Chronic involutional changes of the brain. Electronically Signed: Niraj Rubi MD at 12:06 EDT , Service support ,
--- NOTE | 2021-02-02 10:48 | EKG12_ITS ---
Test Reason : LOSS OF VISION Blood Pressure : / mmHG Vent. Rate : 069 BPM Atrial Rate : 069 BPM P-R Int : 226 ms QRS Dur : 132 ms QT Int : 428 ms P-R-T Axes : 078 -42 034 degrees QTc Int : 458 ms Sinus rhythm with 1st degree A-V block with occasional Premature ventricular complexes Left axis deviation Right bundle branch block Abnormal ECG Confirmed by DEEPAK WILLIAM, KIMBERLEE ([id number]), writer editor DEEPIKA GRANT ([id number]) on 02/06/2021 9:26:33 AM Referred By: ROSA Confirmed By:SOFYA SOTELO MD
[2021-02-02 11:30] LABS: Erythrocyte Sedimentation Rate 5 mm/hr (0-20)
[2021-02-02 11:47] LABS: ALB/GLOB Ratio 1.2 RATIO (0.9-2.4); AST(SGOT) 15 U/L (15-37); Alanine Aminotransfer ALT/SGPT 24 U/L (16-61); Albumin, Serum 3.8 g/dL (3.2-5.0); Alkaline Phosphatase 62 U/L (45-117); Anion Gap 8 (5-15); BUN 27 mg/dL (7-18); BUN/Creat Ratio 20.3 RATIO (10-20); CRP < 2.90 mg/L (0.0-3.0); Calcium,Total 8.3 mg/dL (8.5-10.1); Chloride 104 mmol/L (98-107); Creatinine, Serum 1.33 mg/dL (0.70-1.30); EST Glomerular Filtration Rate 54 mL/min (>60); Est Glom Filt Rate - Afr Amer 66 mL/min (>60); Estimated Creatinine Clearance 41.35 ml/min; Globulin 3.1 g/dL (2.2-4.2); Glucose 123 mg/dL (74-106); Potassium 3.2 mmol/L (3.5-5.1); Protein, Total 6.9 g/dL (6.4-8.2); Sodium Level 143 mmol/L (136-145)
[2021-02-02 12:35] VITALS: BP 153/74; PULSE 59; RESP 16; O2SAT 96
--- NOTE | 2021-02-02 13:34 | EDS_ITS ---
HPI History of Present Illness Chief Complaint: Vision Prob Informant: patient Onset/Context/Timing Onset: Days (3) Context: Sudden Onset Timing: Intermittent and Lasts (15-30 minutes) Quality: Partial visual field loss Location: Right eye Worsened by: Nothing Relieved by: Nothing Narrative Narrative: Patient presents with visual changes that have been intermittent over the past 3 days. Patient states that he has had some partial loss of vision that has been intermittent. Patient states the symptoms last approximately 15 to 30 minutes. Patient saw his security operations specialist today who evaluated him in his office and then referred him to the emergency department for further evaluation. Manufacturing Director stated that his eye exam was normal today. Patient states nothing seems to bring these on. Patient states nothing seems to make them any better. Patient denies any headaches. Patient does admit to some mild pain in his neck, left shoulder, and left elbow. [facility] Medical History Atherosclerotic heart disease of [place] coronary artery without angina pectoris Coronary artery disease Essential hypertension Gastrointestinal bleeding History of GI bleed PRINCE (obstructive sleep apnea) Paroxysmal supraventricular tachycardia Polycythemia Presence of stent in coronary artery (~04/10/10) Pure hypercholesterolemia Home Medications B-complex with vitamin C 1 ea PO DAILY 06/07/15 [History Last Taken Unknown] atenolol 25 mg PO BID 06/07/15 [History Last Taken 07/08/19] cyanocobalamin (vitamin B-12) 1,000 mcg PO TH 06/07/15 [History Last Taken Unknown] hydrochlorothiazide 25 mg PO DAILY 06/07/15 [History Last Taken Unknown] magnesium oxide 250 mg PO DAILY 06/07/15 [History Last Taken Unknown] coenzyme Q10 100 mg PO DAILY 07/07/19 [History Last Taken Unknown] fish oil-dha-epa 1 ea PO DAILY 07/07/19 [History Last Taken Unknown] lutein-zeaxanthin 1 ea PO DAILY 07/07/19 [History Last Taken Unknown] pravastatin 10 mg PO QHS 07/07/19 [History Last Taken Unknown] aspirin 81 mg tablet,delayed release 81 mg PO DAILY 07/31/19 [History Last Taken Unknown] melatonin 1 mg tablet 1 mg PO HS PRN 07/31/19 [History Last Taken Unknown] cholecalciferol (vitamin D3) 25 mcg (1,000 unit) tablet 2,000 unit PO DAILY tab 08/06/19 [History Last Taken Unknown] zinc 50 mg tablet 25 mg PO .QOD tab 08/06/19 [History Last Taken Unknown] esomeprazole magnesium 20 mg capsule,delayed release 20 mg PO DAILY 11/18/20 [History Last Taken Unknown] Allergy/AdvReac Type Severity Reaction Status Date / Time hydromorphone HCl Allergy Other Verified 02/02/21 10:25 [From Dilaudid] thiopental Allergy Anaphylaxis Verified 02/02/21 10:25 aspirin AdvReac Upset Verified 02/02/21 10:25 Stomach azithromycin AdvReac Upset Verified 02/02/21 10:25 Stomach cephalexin monohydrate AdvReac Hives Verified 02/02/21 10:25 [From Keflex] erythromycin base AdvReac Diarrhea Verified 02/02/21 10:25 gluten AdvReac Upset Verified 02/02/21 10:25 Stomach lactose AdvReac Upset Verified 02/02/21 10:25 Stomach morphine AdvReac Hives Verified 02/02/21 10:25 NSAIDS (Non-Steroidal AdvReac Upset Verified 02/02/21 10:25 Anti-Inflamma Stomach Penicillins AdvReac Diarrhea Verified 02/02/21 10:25 simvastatin AdvReac Pain in Verified 02/02/21 10:25 joints CYCLOPROPANE Allergy Other Uncoded 02/02/21 10:25 IV CONTRAST AdvReac Hives Uncoded 02/02/21 10:25 Family History Father Hypertension CVA (cerebral vascular accident) Mother Hypertension Sister COPD (chronic obstructive pulmonary disease) Surgical History History of bilateral cataract extraction History of bilateral hip replacements History of cardiac radiofrequency ablation (~1995) History of eye surgery History of right hemicolectomy History of tonsillectomy and adenoidectomy Presence of coronary angioplasty implant and graft (~04/10/10) Social History Smoking Status: Never smoker alcohol intake: never details: Rare substance use type: does not use caffeine: Yes Type: tea Number of servings: 1 and other Number of servings: 1 ROS ROS ED Constitutional Constitutional ED: Denies chills or fever(s) Eyes Eyes: Reports change in vision; Denies blurry vision ENT ENT ED: Denies rhinorrhea or sore throat Cardiovascular Cardiovascular: Denies chest pain or palpitations Respiratory/Chest Respiratory/Chest: Denies cough or dyspnea Gastrointestinal Gastrointestinal: Denies nausea or vomiting Genitourinary Genitourinary ED: Denies dysuria or hematuria Musculoskeletal Musculoskeletal: Reports arthralgias and neck pain; Denies back pain Integumentary Denies abscess or rash Neurologic Neurologic: Denies headache(s) or weakness Allergic/Immunologic Allergic/Immunologic ED: Denies mouth swelling or urticaria EXAM Physical Exam Const Vital Signs: 02/02/21 10:23 02/02/21 12:35 Temperature 97.2 F L Temperature Source Temporal Pulse Rate 67 59 L Respiratory Rate 18 16 Blood Pressure 144/72 H 153/74 H Blood Pressure Mean 96 100 Pulse Ox 96 96 Oxygen Delivery Method Room Air Room Air Positive well nourished and well developed General Appearance ED: well developed HEENT Reports moist mucous membranes Neck supple and no JVD Resp normal respiratory effort and clear to auscultation bilaterally Cardio regular rate, regular rhythm and no murmurs GI normal to inspection, nondistended, normoactive bowel sounds and non-tender Palpation: soft Extremity normal to inspection General Extremety ED: Negative for edema or tenderness General Extremity: Negative for edema Neuro oriented x3, CN's II-XII intact bilaterally and no sensory deficits noted Sensorium / Orientation: alert Motor Exam: strength 5/5 throughout Psych mental status grossly normal Skin no rashes or lesions noted MDM MDM MDM Narrative Medical decision making narrative: Patient had a CBC done earlier this week which was normal. Comprehensive metabolic profile shows slightly elevated creatinine 1.33 and a BUN of 27. C-reactive protein was normal. Sed rate was normal. Carotid Dopplers were obtained and were normal. CT scan of the brain was obtained. There is no acute intracranial abnormality. Case was discussed with Dr. Clemente from ophthalmology.. He was advised of the patient's findings. The echocardiogram with bubble study was unable to be performed in the emergency department. Patient was given his order slip back to have this scheduled as an outpatient. Patient was also instructed to follow-up with his primary care physician in 3 to 5 days. Patient and family understood and were agreeable with the plan. All questions were answered. Lab Data Attestation: I reviewed the patient's lab results. Labs: Laboratory Results - last 24 hr 02/02/21 02/02/21 11:14 11:14 ESR 5 Sodium 143 Potassium 3.2 L Chloride 104 Carbon Dioxide 31.0 Anion Gap 8 BUN 27 H Creatinine 1.33 H Estim Creat Clear Calc 41.35 Est GFR (MDRD) Af Amer 66 Est GFR (MDRD) Non-Af 54 L BUN/Creatinine Ratio 20.3 H Glucose 123 H Calcium 8.3 L Total Bilirubin 0.60 AST 15 ALT 24 Alkaline Phosphatase 62 C-React Prot Ext Range < 2.90 Total Protein 6.9 Albumin 3.8 Globulin 3.1 Albumin/Globulin Ratio 1.2 Radiography Diagnostic Testing: Radiology Impression Brain CT 02/02/21 10:47 IMPRESSION: Chronic involutional changes of the brain. Electronically Signed: Niraj Rubi MD at 12:06 EDT , Service support , Discharge Plan Triage Chief Complaint: Vision Prob ED Provider: Maikel Simpson Dx/Rx/DC Orders Clinical Impression: Amaurosis fugax of right eye Instructions: ED TIA: Transient Ischemic Attack Prescriptions: No Action aspirin [Adult Low Dose Aspirin] 81 mg tablet,delayed release (DR/EC) 81 mg PO DAILY RF: 0 melatonin 1 mg tablet 1 mg PO HS PRNRF: 0 zinc 50 mg tablet 25 mg PO .QOD RF: 0 esomeprazole magnesium [Nexium] 20 mg capsule,delayed release(DR/EC) 20 mg PO DAILY RF: 0 atenolol 25 MG tablet 25 mg PO BID RF: 0 cyanocobalamin (vitamin B-12) 1,000 MCG tablet 1,000 mcg PO TH RF: 0 hydrochlorothiazide 25 MG tablet 25 mg PO DAILY RF: 0 magnesium oxide 250 MG tablet 250 mg PO DAILY RF: 0 B-complex with vitamin C 1 EACH tablet 1 ea PO DAILY RF: 0 cholecalciferol (vitamin D3) 25 mcg (1,000 unit) tablet 2,000 unit PO DAILY RF: 0 pravastatin 10 MG tablet 10 mg PO QHS RF: 0 coenzyme Q10 100 MG capsule 100 mg PO DAILY RF: 0 fish oil-dha-epa 1 EACH capsule 1 ea PO DAILY RF: 0 lutein-zeaxanthin 1 EACH capsule 1 ea PO DAILY RF: 0 Primary Care Provider: Bello Boyd Referrals: Bello Boyd MD [Primary Care Provider] - 3-5 Days Disposition Disposition: Home, Self Care
== END 2021-02-02 14:21 | disposition home or self-care (01) ==
PROVIDERS: Emergency Provider Emergency Medicine; PCP Family Medicine
DX: G45.3 Amaurosis fugax (principal); I25.10 Atherosclerotic heart disease of native coronary artery without angina pectoris; I10 Essential (primary) hypertension; E78.00 Pure hypercholesterolemia, unspecified; Z79.899 Other long term (current) drug therapy
CPT/HCPCS: 36591; 70450; 80053; 85652; 86140; 93005; 93880; 99285; A4216

== ENCOUNTER → 2021-02-17 14:53 | Outpatient (CLI) | payer MEDICARE, OTHER, SELFPAY ==
[2021-02-02 10:23] VITALS: BMI 29.5
--- NOTE | 2021-02-17 14:56 | ECHOD_ITS ---
Reason For Study: TIA Procedure This was a 2D Doppler, Color Flow transthoracic echocardiogram. Bubble Study Performed. Exam performed in department. Left Ventricle Normal LV size. Left ventricular systolic function is normal. The estimated ejection fraction is 65 %. No evidence for diastolic dysfunction. No regional wall motion abnormalities noted. Right Ventricle Normal RV size. Normal systolic function. Atria Normal left atrium. Normal right atrium. No doppler evidence for ASD. Bubble contrast study negative for right to left interatrial shunt. Mitral Valve There is no mitral annular calcification. Mild diffuse mitral valve thickening. Mild (1+) mitral valve insufficiency. Tricuspid Valve Normal tricuspid valve. Trivial tricuspid valve insufficiency. Right ventricular systolic pressure estimated to be 30 mmHg. Aortic Valve Trisinus/trileaflet aortic valve. Normal aortic valve. Mild (1+) aortic valve insufficiency. Pulmonic Valve The pulmonic valve is not well visualized. Great Vessels The aortic root is not well visualized. Pericardium/Pleural No pericardial effusion. Medication Port access by Reyna HERNANDEZ-Radiology. Performed a rapid injection of agitated mix of 9 cc saline and 1cc air to assess for atrial septal defect. MMode/2D Measurements & Calculations LVIDd: 5.2 cm IVSd: 0.93 cm LA dimension: 3.9 cm LVIDs: 3.2 cm LVPWd: 0.83 cm FS: 37.6 % LAV(MOD-bp): 58.2 ml LA A4 area: 17.7 cm2 RA A4 area: 15.5 cm2 LAV(MOD-bp) Indexed: 28.1 ml/m2 LAV(MOD-sp2): 62.8 ml LAV(MOD-sp4): 48.8 ml Time Measurements MV dec time: 0.25 sec Doppler Measurements & Calculations MV E max mateo: 75.7 cm/sec Lat Peak E' Mateo: 7.7 cm/sec Med Peak E' Mateo: 6.6 cm/sec MV A max mateo: 79.6 cm/sec E/E' lat: 9.8 E/E' med: 11.5 MV E/A: 0.95 MV V2 max: 88.4 cm/sec MV P1/2t max mateo: 87.1 cm/sec Ao V2 max: 109.6 cm/sec MV max P.1 mmHg MV P1/2t: 85.4 msec Ao max P.8 mmHg MV V2 mean: 46.4 cm/sec MV dec slope: 298.8 cm/sec2 MV mean P.0 mmHg MV V2 VTI: 30.8 cm MVA(P1/2t): 2.6 cm2 AI max mateo: 319.1 cm/sec LV V1 max: 89.3 cm/sec MR max mateo: 600.5 cm/sec AI max P.7 mmHg LV V1 max P.2 mmHg MR max P.2 mmHg AI dec slope: 128.4 cm/sec2 AI P1/2t: 728.1 msec PA V2 max: 117.5 cm/sec TR max mateo: 261.4 cm/sec TR max P.3 mmHg ECHO/Echo Complete Interpretation Summary Left ventricular systolic function is normal. The estimated ejection fraction is 65 %. Mild diffuse mitral valve thickening. Mild (1+) mitral valve insufficiency. Trivial tricuspid valve insufficiency. Mild (1+) aortic valve insufficiency. Right ventricular systolic pressure estimated to be 30 mmHg. No evidence for diastolic dysfunction. Bubble contrast study negative for right to left interatrial shunt. Ordering Physician: Bello Boyd Referring Physician: Bello Boyd Performed By: En Taveras RCS
== END ==
PROVIDERS: PCP Family Medicine; Referring Provider Family Medicine; Visit Provider Family Medicine
DX: G45.9 Transient cerebral ischemic attack, unspecified (principal)
CPT/HCPCS: 93306; A4216

== ENCOUNTER → 2021-04-03 15:43 | Outpatient (CLI) | payer MEDICARE, OTHER, SELFPAY ==
--- NOTE | 2021-04-03 15:46 | RAD_ITS ---
STUDY: X-RAY - PELVIS AND RIGHT HIP REASON FOR EXAM: Male, 85 years old. Pain. TECHNIQUE: 3 views of the pelvis and hip. COMPARISON: None. FINDINGS: There is a non-specific bowel gas pattern. Phleboliths and vascular calcification. Osteopenia. Mild arthrosis of the sacroiliac joints and symphysis pubis. Bilateral total hip arthroplasties in anatomic alignment without complications. RAD/HIP, UNI W/ Pelvis 2-3 Views IMPRESSION: Osteopenia with osteoarthritic changes as described. Uncomplicated bilateral total hip arthroplasties. No acute abnormality. Electronically Signed: Carlton Hemphill MD at 12:21 EDT , Service support ,
--- NOTE | 2021-04-03 15:46 | RAD_ITS ---
STUDY: X-RAY - LUMBAR SPINE REASON FOR EXAM: Male, 85 years old. His leg and groin pain. TECHNIQUE: 5 view(s) of the lumbar spine were obtained. COMPARISON: None FINDINGS: Osteopenia. Normal lumbar lordosis. Mild levoscoliosis. There is a normal alignment of the vertebrae. Diffuse moderate facet sclerosis. Normal vertebral bodies and endplates. Diffuse mild intervertebral disc space narrowing with small osteophytes at T11-T12, T12-L1 and L1-2. Bilateral total hip arthroplasties. Marked vascular calcification. RAD/L/S Spine Min 4 Views IMPRESSION: Osteopenia with diffuse moderate lumbosacral spondylosis. No acute abnormality or evidence of fusion or erosive change. Electronically Signed: Carlton Hemphill MD at 12:37 EDT , Service support ,
== END ==
PROVIDERS: PCP Family Medicine; Referring Provider Family Medicine; Visit Provider Family Medicine
DX: M25.551 Pain in right hip (principal); M54.17 Radiculopathy, lumbosacral region
CPT/HCPCS: 72110; 73502

== ENCOUNTER → 2021-07-07 09:56 | Outpatient (CLI) | payer MEDICARE, OTHER, SELFPAY ==
[2021-07-07 10:25] LABS: Erythrocyte Sedimentation Rate 7 mm/hr (0-20)
[2021-07-07 10:41] LABS: Vitamin B12 727 pg/mL (211-911); Vitamin D,25 Hydroxy 28.2 ng/mL
[2021-07-07 10:50] LABS: ALB/GLOB Ratio 1.1 RATIO (0.9-2.4); AST(SGOT) 14 U/L (15-37); Alanine Aminotransfer ALT/SGPT 39 U/L (16-61); Albumin, Serum 3.7 g/dL (3.2-5.0); Alkaline Phosphatase 68 U/L (45-117); Anion Gap 7 (5-15); BUN 16 mg/dL (7-18); BUN/Creat Ratio 17.8 RATIO (10-20); Calcium,Total 8.6 mg/dL (8.5-10.1); Chloride 98 mmol/L (98-107); EST Glomerular Filtration Rate 85 mL/min (>60); Est Glom Filt Rate - Afr Amer 103 mL/min (>60); Globulin 3.4 g/dL (2.2-4.2); Glucose 97 mg/dL (74-106); Potassium 3.7 mmol/L (3.5-5.1); Protein, Total 7.1 g/dL (6.4-8.2); Sodium Level 133 mmol/L (136-145)
[2021-07-07 11:17] LABS: Carbamazepine (Tegretol) 7.6 ug/mL (4.0-12.0)
== END ==
PROVIDERS: PCP Family Medicine; Referring Provider Nurse Practitioner Family; Visit Provider Nurse Practitioner Family
DX: B02.29 Other postherpetic nervous system involvement (principal); M85.80 Other specified disorders of bone density and structure, unspecified site
CPT/HCPCS: 36591; 80053; 80156; 82306; 82607; 82746; 85652; A4216

== ENCOUNTER → 2022-05-28 | Outpatient (CLI) | payer MEDICARE, OTHER, SELFPAY ==
[2022-05-28 17:53] LABS: CRP < 2.90 mg/L (0.0-3.0)
[2022-05-28 17:54] LABS: Erythrocyte Sedimentation Rate 6 mm/hr (0-20)
== END | disposition home or self-care (01) ==
LOC: LAB 16:39
PROVIDERS: PCP Family Medicine; Referring Provider Ophthalmology; Visit Provider Ophthalmology
DX: H49.22 Sixth [abducent] nerve palsy, left eye (principal)
CPT/HCPCS: 36415; 85652; 86140

== ENCOUNTER → 2023-10-14 | Outpatient (CLI) | payer MEDICARE, OTHER, SELFPAY ==
--- NOTE | 2023-10-14 07:09 | ECHOCS_ITS ---
Reason For Study: CAD/ASHD Procedure This was a 2D Doppler, Color Flow transthoracic echocardiogram. The study was technically difficult. Exam performed in department. Left Ventricle Normal LV size. Mild concentric left ventricular hypertrophy. Left ventricular systolic function is normal. The estimated ejection fraction is 60 %. No regional wall motion abnormalities noted. Right Ventricle Normal RV size. Normal systolic function. Atria Normal left atrium. Normal right atrium. Mitral Valve Normal mitral valve. Mild (1+) eccentric mitral valve insufficiency. Tricuspid Valve Normal tricuspid valve. Mild tricuspid valve insufficiency. Pulmonary artery systolic pressure is 25 mmHg. Aortic Valve Trisinus/trileaflet aortic valve. Mild focal aortic valve calcification. Mild (1+) aortic valve insufficiency. Pulmonic Valve Normal pulmonic valve. Great Vessels Normal aortic root. The pulmonary artery is normal size. Inferior vena cava collapse with respiration. Pericardium/Pleural No pericardial effusion. Medication Diluted definity 1.5ml given slow IV push to enhance endocardial definition. MMode/2D Measurements & Calculations LVIDd: 5.0 cm IVSd: 1.2 cm Ao root diam: 3.5 cm LVIDs: 3.3 cm LVPWd: 1.2 cm RVDd: 3.6 cm FS: 33.0 % LAV(MOD-bp): 40.0 ml LVAd ap4: 31.2 cm2 SV(MOD-sp4): 58.9 ml LAV(MOD-bp) Indexed: 19.2 ml/m2 LVLd ap4: 8.4 cm LAV(MOD-sp2): 41.2 ml EDV(MOD-sp4): 95.3 ml LAV(MOD-sp4): 36.9 ml EDV(sp4-el): 98.4 ml LVAs ap4: 17.2 cm2 LVLs ap4: 6.8 cm ESV(MOD-sp4): 36.4 ml ESV(sp4-el): 37.2 ml EF(MOD-sp4): 61.8 % EF(sp4-el): 62.2 % SV(sp4-el): 61.2 ml LA A4 area: 15.4 cm2 LA dimension(2D): 3.8 cm RA A4 area: 11.4 cm2 TAPSE: 2.3 cm Time Measurements MV dec time: 0.24 sec Doppler Measurements & Calculations MV E max mateo: 66.7 cm/sec Lat Peak E' Mateo: 7.8 cm/sec Med Peak E' Mateo: 6.2 cm/sec MV A max mateo: 65.9 cm/sec E/E' lat: 8.5 E/E' med: 10.8 MV E/A: 1.0 Ao V2 max: 108.6 cm/sec AI max mateo: 319.8 cm/sec LV V1 max: 79.6 cm/sec Ao max P.7 mmHg AI max P.9 mmHg LV V1 max P.5 mmHg AI dec slope: 161.7 cm/sec2 AI P1/2t: 579.3 msec PA V2 max: 85.0 cm/sec TR max mateo: 237.7 cm/sec TR max P.6 mmHg ECHO/Echo Complete W/ Contrast Interpretation Summary Normal LV size. Left ventricular systolic function is normal. The estimated ejection fraction is 60 %. Pulmonary artery systolic pressure is 25 mmHg. Mild (1+) aortic valve insufficiency. Mild (1+) eccentric mitral valve insufficiency. Contrast injection was performed. Ordering Physician: Josesito Flores Referring Physician: SURI FULLER Performed By: Carine Arias RDCS
--- NOTE | 2023-10-14 07:09 | ART_ITS ---
Reason For Study: Leg Pain Procedure A bilateral lower extremity continuous wave Doppler with analog waveform analysis and ankle brachial indexes. Left Segmental Pressures Left brachial= 159mmHg. Left posterior tibial artery = 162mmHg. Left dorsalis pedis artery = 138mmHg. Left digit = 82 mmHg. Right Segmental Pressures Right brachial= 159mmHg. Right posterior tibial artery = 209mmHg. Right dorsalis pedis artery = 176mmHg. Right digit = 109 mmHg. Indices The right ankle brachial index by the posterior tibial artery is 1.31. The right ankle brachial index by the dorsalis pedis is 1.11. The right digital-brachial index is 0.69. The left ankle brachial index by the posterior tibial artery is 1.02. The left ankle brachial index by the dorsalis pedis is 0.87. The left digital-brachial index is 0.52. VL/Ankle Brachial Index Interpretation Summary Normal right lower extremity posterior tibial and dorsalis pedis ankle-brachial indices at rest of 1.31 and 1.11 respectively with normal triphasic posterior tibial Doppler wavef orms with diminished right dorsalis pedis biphasic waveforms. Borderline normal right digital brachial index of 0.69 Normal left lower extremity posterior tibial ankle-brachial index of 1.02 with a abnormal left dorsalis pedis index of 0.82. Doppler waveforms are biphasic at both levels sug gesting moderate disease. The left digital brachial index is abnormal at 0.52 Critical ischemia is not identified bilaterally Ordering Physician: Josesito Flores Referring Physician: Uma Marmolejo Performed By: Leydi Rosario RDCS/RVT
[2023-10-14 09:31] LABS: AST(SGOT) 23 U/L (15-37); Alanine Aminotransfer ALT/SGPT 30 U/L (16-61); Albumin, Serum 3.9 g/dL (3.2-5.0); Alkaline Phosphatase 58 U/L (45-117); Bilirubin, Direct 0.19 mg/dL (0.00-0.30); Cholesterol 132 mg/dL (200); Globulin 3.1 g/dL (2.2-4.2); High Density Lipoprotein 26 mg/dL; Triglycerides 286 mg/dL; Very Low Density Lipoprotein 57 mg/dL (5-40)
--- NOTE | 2023-10-14 14:15 | STRESSREP ---
Stress Test Report Pharmacologic myocardial perfusion stress test. 87-year-old man with a history of coronary artery disease Resting EKG demonstrates sinus rhythm with a rate of 63 bpm. Resting blood pressure is 160/82 mmHg. 0.4 mg of regadenoson was infused per usual protocol followed by rapid intravenous saline flush injection. Continuous EKG monitoring was performed. The maximum heart rate was 83 bpm which was 61% of max impacted heart rate the maximum workload was 1 metabolic equivalent. At rest there were no ST or T wave changes noted to suggest ischemia and at peak infusion nonspecific ST changes were noted which did not meet the criteria for ischemia. No clinical angina is noted. The final blood pressure was 140/80 mmHg. Myocardial perfusion protocol. 14.6 mCi of technetium 99m sestamibi was injected at rest. 0.4 mg of regadenoson was infused per usual protocol. At peak infusion 44.3 mCi of technetium 99m sestamibi was injected stress images were obtained stress and rest images were reconstructed and compared in the short axis vertical long and horizontal long axis. Gated images were also obtained. Perfusion SPECT analysis: Review of the stress images demonstrate normal uptake of tracer noted in all areas of the myocardium. The resting images similar demonstrated normal uptake of tracer noted in all areas of the myocardium. No areas of reversibility are noted to suggest ischemia and no previous infarct is noted. Gated SPECT analysis: The gated ejection fraction is 63%. Conclusion: Normal pharmacologic myocardial perfusion stress test. Preserved ejection fraction.
== END | disposition home or self-care (01) ==
PROVIDERS: PCP Internal Medicine; Referring Provider Internal Medicine Cardiovascular Disease; Visit Provider Internal Medicine Cardiovascular Disease
DX: E78.00 Pure hypercholesterolemia, unspecified (principal); G45.3 Amaurosis fugax; I47.10 Supraventricular tachycardia, unspecified; I25.10 Atherosclerotic heart disease of native coronary artery without angina pectoris; I73.9 Peripheral vascular disease, unspecified
CPT/HCPCS: 78452; 80061; 80076; 93017; 93306; 93922; A9500; Q9957; A4216; C8929; J2785

== ENCOUNTER 2024-11-20 10:06 | Outpatient (CLI) | payer MEDICARE, OTHER, SELFPAY ==
[2024-11-20 10:30] LABS: Absolute Lymphocyte Count 0.92 X10^3/uL (0.83-4.51); Absolute Neutrophil Count 5.6 X10^3/uL (2.0-7.7); Basophil# 0.09 X10^3/uL; Basophil% 1.2 % (0-1); Eosinophil# 0.21 X10^3/uL; Eosinophils% 2.8 % (0-5); Hematocrit 40.4 % (40-54); Hemoglobin 11.9 g/dL (13.0-16.5); Lymphocyte # 0.92 X10^3/ul (0.83-4.51); Lymphocyte % 12.2 % (19-41); Mean Corp Hgb Conc 29.5 g/dL (32-36); Mean Corpuscular Hgb 19.7 pg (27.0-32.0); Mean Platelet Vol. 9.4 fl (6.2-12.0); Monocyte# 0.71 X10^3/uL; Monocyte% 9.4 % (0-10); NRBC Flagged by Analyzer 0 % (0-5); Neutrophil # 5.56 X10^3/uL (2.7-7.7); Neutrophil % 73.9 % (47-70); POSITIVE MORPHOLOGY YES; Platelet Count 211 K/mm3 (150-450); RBC Distribution Width CV 22.2 % (11.6-14.6); RBC Distribution Width SD 48.9 fl (35.1-43.9); Red Blood Count 6.03 M/mm3 (4.6-6.2); White Blood Count 7.5 K/mm3 (4.4-11.0)
[2024-11-20 10:44] LABS: Differential Indicated SCAN CRITERIA MET
[2024-11-20 10:53] LABS: Hemoglobin A1c 6.4 % (<=5.6)
[2024-11-20 11:07] LABS: Anisocytosis 1+
[2024-11-20 11:10] LABS: ALB/GLOB Ratio 1.7 RATIO (0.9-2.4); AST(SGOT) 22 U/L (<=37); Alanine Aminotransfer ALT/SGPT 20 U/L (<=46); Albumin, Serum 4.4 g/dL (3.4-4.8); Alkaline Phosphatase 75 U/L (40-129); Anion Gap 10 (5-15); BUN 24 mg/dL (4-19); BUN/Creat Ratio 18.8 RATIO (10-20); Calcium,Total 9.1 mg/dL (7.6-11.0); Carbon Dioxide 25.6 mmol/L (21.0-32.0); Chloride 102 mmol/L (98-108); Cholesterol 123 mg/dL (<=200); Creatinine, Serum 1.28 mg/dL (0.70-1.20); EST Glomerular Filtration Rate 54 (>60); Free T3 2.6 pg/mL (2.18-3.98); Globulin 2.6 g/dL (2.2-4.2); Glucose 122 mg/dL (70-99); High Density Lipoprotein 25 mg/dL; Low Density Lipoprotein Calc. 68 mg/dL; Magnesium 2.4 mg/dL (1.5-2.2); PSA,Total - Annual Screen 3.18 ng/mL (0.02-4.00); Potassium 4.1 mmol/L (3.3-5.1); Protein, Total 6.9 g/dL (5.9-8.4); Sodium Level 138 mmol/L (133-145); Total Bilirubin 0.84 mg/dL (0.00-1.30); Triglycerides 148 mg/dL; Very Low Density Lipoprotein 30 mg/dL (5-40); Vitamin B12 656 pg/mL (180-914); Vitamin D,25 Hydroxy 33.6 ng/mL (30-100)
[2024-11-20 18:25] LABS: Xtra Tube EP Lab EXTRA TUBE
== END 2024-11-20 23:59 | disposition home or self-care (01) ==
LOC: MEDOUTP 10:08
PROVIDERS: PCP Internal Medicine; Referring Provider Internal Medicine; Visit Provider Internal Medicine
DX: Z12.5 Encounter for screening for malignant neoplasm of prostate (principal); R53.83 Other fatigue; R73.9 Hyperglycemia, unspecified; E55.9 Vitamin D deficiency, unspecified; R53.1 Weakness; I25.10 Atherosclerotic heart disease of native coronary artery without angina pectoris; Z13.220 Encounter for screening for lipoid disorders
CPT/HCPCS: 36591; 80053; 80061; 82306; 82607; 83036; 83735; 84153; 84439; 84443; 84481; 85025; A4216; G0103

== ENCOUNTER → 2024-11-23 | Outpatient (CLI) | payer MEDICARE, OTHER, SELFPAY | END | disposition home or self-care (01) | LOC: LABSPEC 15:02 | PROVIDERS: PCP Internal Medicine; Referring Provider Internal Medicine; Visit Provider Internal Medicine | DX: R71.8 Other abnormality of red blood cells (principal) ==

== ENCOUNTER 2025-07-19 12:03 | Emergency (ER) | payer MEDICARE, OTHER, SELFPAY ==
[2025-07-19 12:05] VITALS: BP 166/107; PULSE 70; RESP 18; TEMP 35.5; O2SAT 99; BMI 31.3
--- NOTE | 2025-07-19 12:08 | ED.RN ---
MD to assess in triage. not calling stroke alert at this time. discussing Chavez's palsy with patient and .
--- NOTE | 2025-07-19 12:16 | EX.ED.DYSGE1 ---
HPI History of Present Illness Chief Complaint: Neuro S/Sx Narrative Narrative: 89-year-old male history of CAD, polycythemia, hypertension presenting to the emergency department for complaint of facial droop. Patient states that woke up this morning around 10 AM went to the bathroom to brush his teeth and noticed that the left side of his mouth was drooped and that he could not close his eye fully on the left. Denies any history of strokes or any other symptoms. Denying any weakness, sensory deficits or vision changes. [facility] Medical History Low mean corpuscular volume (MCV) Gait difficulty Weakness of right lower extremity Hyponatremia Vitamin D deficiency History of GI bleed PRINCE (obstructive sleep apnea) Paroxysmal supraventricular tachycardia Pure hypercholesterolemia Presence of stent in coronary artery (~04/10/10) Atherosclerotic heart disease of [place] coronary artery without angina pectoris Essential hypertension Polycythemia Coronary artery disease Gastrointestinal bleeding Home Medications ?Medication ?Instructions ?Recorded ?Last Taken ?Type coenzyme Q10 100 mg capsule 100 mg PO DAILY 07/07/19 07/18/25 History fish oil-dha-epa 1,200 mg-144 1 ea PO DAILY 07/07/19 07/18/25 History mg-216 mg capsule aspirin 81 mg tablet,delayed 81 mg PO DAILY 09/20/22 07/19/25 History release melatonin 1 mg tablet 2 mg PO HS PRN sleep 09/20/22 Unknown History lidocaine 2.5 %-prilocaine 2.5 % ea miscellaneous PRN as ordered 11/14/22 Unknown History cream with 0.9 % sodium chloride soln cholecalciferol (vitamin D3) 50 50 mcg PO DAILY 09/10/23 07/18/25 History mcg (2,000 unit) capsule magnesium oxide 250 mg PO DAILY 09/10/23 07/18/25 History B-complex with vitamin C 1 tab PO DAILY PRN taking as needed 04/09/24 Unknown History acetaminophen 500 mg tablet 500 mg PO QHS PRN pain 04/09/24 Unknown History (Tylenol Extra Strength) atenolol 50 mg tablet 25 mg (1/2 x 50 mg) PO BID #90 tabs 08/20/24 07/19/25 Rx hydrochlorothiazide 25 mg tablet 25 mg PO DAILY #90 tabs 08/20/24 07/19/25 Rx pravastatin 10 mg tablet 10 mg PO DAILY #90 tabs 08/20/24 07/18/25 Rx lutein 25 mg-zeaxanthin 5 mg 1 cap PO 3XW PRN eyes 09/14/24 Unknown History capsule omeprazole 20 mg capsule,delayed 20 mg PO QDAY #90 caps 07/01/25 07/19/25 Rx release artificial 1 drp LEFT EYE QHS #15 mL 07/19/25 Unknown Rx tears(hblywgs-catwjnal-uksnazk) 0.1 %-0.3 %-0.2 % eye drops prednisone 20 mg tablet 60 mg (3 x 20 mg) PO DAILY #7 tabs 07/19/25 Unknown Rx valacyclovir 1 gram tablet 1,000 mg PO TID #21 tabs 07/19/25 Unknown Rx Allergy/AdvReac Type Severity Reaction Status Date / Time Anesthetics - Amide Type - Allergy Unknown PT UNSURE Verified 07/19/25 12:04 Select A OF REACTION hydromorphone HCl (From Allergy Other Verified 07/19/25 12:04 Dilaudid) thiopental Allergy Anaphylaxis Verified 07/19/25 12:04 aspirin AdvReac Upset Verified 07/19/25 12:04 Stomach azithromycin AdvReac Upset Verified 07/19/25 12:04 Stomach cephalexin monohydrate (From AdvReac Hives Verified 07/19/25 12:04 Keflex) erythromycin base AdvReac Diarrhea Verified 07/19/25 12:04 gluten AdvReac Upset Verified 07/19/25 12:04 Stomach Iodinated Contrast Media (iv AdvReac Hives Verified 07/19/25 12:04 contrast) lactose AdvReac Upset Verified 07/19/25 12:04 Stomach morphine AdvReac Hives Verified 07/19/25 12:04 NSAIDS (Non-Steroidal AdvReac Upset Verified 07/19/25 12:04 Anti-Inflamma Stomach Penicillins AdvReac Diarrhea Verified 07/19/25 12:04 simvastatin AdvReac Pain in Verified 07/19/25 12:04 joints Family History Father Hypertension CVA (cerebral vascular accident) Mother Hypertension Sister COPD (chronic obstructive pulmonary disease) Surgical History History of right hemicolectomy History of eye surgery History of bilateral cataract extraction History of bilateral hip replacements History of tonsillectomy and adenoidectomy History of cardiac radiofrequency ablation (~1995) Presence of coronary angioplasty implant and graft (~04/10/10) Social History Smoking Status: Never smoker Electronic Cigarette Use: not used second hand exposure: No alcohol intake: never substance use type: does not use caffeine: Yes Type: tea Number of servings: 1 and other Number of servings: 1 EXAM Physical Exam Const Vital Signs: 07/19/25 12:05 07/19/25 13:03 07/19/25 13:35 Temperature 96 F L 96 F L Temperature Source Temporal Pulse Rate 70 64 64 Respiratory Rate 18 18 Blood Pressure 166/107 H 166/73 H 166/73 H Blood Pressure Mean 126 104 104 Pulse Ox 99 97 97 Oxygen Delivery Method Room Air Room Air General Appearance ED: active, cooperative and comfortable HEENT Reports normocephalic and external ears normal HEENT Narrative: Facial asymmetry with left lower mouth facial droop normocephalic, normal to inspection and atraumatic Eyes PERRL and EOMs intact bilaterally Resp normal respiratory effort, normal air movement and clear to auscultation bilaterally Cardio regular rate and regular rhythm Neuro oriented x3, CN's II-XII intact bilaterally, moves all extremities, no focal motor deficits and no sensory deficits noted Neuro Narrative: Facial asymmetry including left upper and lower side of face MDM MDM MDM Narrative Medical decision making narrative: 89-year-old male history of CAD, polycythemia, hypertension presenting to the emergency department for complaint of facial droop. Patient states that woke up this morning around 10 AM went to the bathroom to brush his teeth and noticed that the left side of his mouth was drooped and that he could not close his eye fully on the left. Denies any history of strokes or any other symptoms. Denying any weakness, sensory deficits or vision changes. On my physical exam patient having some facial asymmetry on the left including the left lower face and left upper face consistent with Chavez's palsy. No evidence of any other focal neurological deficits with low suspicion for CVA as this is consistent with Chavez's palsy. Do not feel that CT imaging is needed secondary to this or any other lab work. I did visualize patient's tympanic membranes which do appear to be intact bilaterally with no evidence of infection. Vitals within normal limits. Educated patient on the diagnosis and given artificial tears, valacyclovir and steroids with follow-up to ophthalmology. Patient is scheduled to have an MRI outpatient with his primary care provider tomorrow for an eye issue that has been ongoing for several months. Patient will see his PCP at that time and recommend to return to the emergency department if any worsening symptoms or changes. Discharge Plan Triage Chief Complaint: Neuro S/Sx ED Provider: Vivian Mckeon Dx/Rx/DC Orders Clinical Impression: Chavez's palsy Instructions: ED Cahvez's Palsy Prescriptions: New artificial tear(gartq-gzm-ykb) 0.1-0.3-0.2 % drops 1 drp LEFT EYE QHS Qty: 15 0RF valacyclovir 1 gram tablet 1,000 mg PO TID Qty: 21 0RF prednisone 20 mg tablet 60 mg PO DAILY Qty: 7 0RF No Action melatonin 1 mg tablet 2 mg PO HS PRN (Reason: sleep) Patient Comments: 2.5mg to5mg cholecalciferol (vitamin D3) 50 mcg (2,000 unit) capsule 50 mcg PO DAILY acetaminophen [Tylenol Extra Strength] 500 mg tablet 500 mg PO QHS PRN (Reason: pain) aspirin 81 mg tablet,delayed release (DR/EC) 81 mg PO DAILY fqubhvrfo-lithxrivt-1.9 % NaCl 2.5 % -2.5 % kit miscellaneous PRN (Reason: as ordered) Rx Instructions: ordred by dr Garcia for port when get blood draws magnesium oxide 250 mg magnesium tablet 250 mg PO DAILY Patient Comments: MAGNESIUM SLEEP B-complex with vitamin C Tablet 1 tab PO DAILY PRN (Reason: taking as needed) Patient Comments: SUPPLEMENT coenzyme Q10 100 MG capsule 100 mg PO DAILY fish oil-dha-epa 1 EACH capsule 1 ea PO DAILY lutein-zeaxanthin 25-5 mg capsule 1 cap PO 3XW PRN (Reason: eyes) atenolol 50 mg tablet 25 mg PO BID Qty: 90 3RF Rx Instructions: pt wants 50mg to cut in half bc more cost effective with insurance hydrochlorothiazide 25 mg tablet 25 mg PO DAILY Qty: 90 3RF pravastatin 10 mg tablet 10 mg PO DAILY Qty: 90 3RF omeprazole 20 mg capsule,delayed release(DR/EC) 20 mg PO QDAY Qty: 90 3RF Primary Care Provider: Uma Marmolejo Referrals: Uma Marmolejo MD [Primary Care Provider, Internal Medicine - [facility]] Haylee Valencia MD [Med Staff - Active Staff, Opthamology] Activity Restrictions/Additional Instructions: Please follow-up with your primary care provider regarding your visit today within the next week. 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 It is recommended to tape the left eye shut at night so that it does not dry out but when you are awake to use eyedrops once every hour while you are awake in the left eye. Take the antiviral and steroid medication for the next week. Return if you develop any worsening symptoms or changes. Print Language: Slovenian Disposition Disposition: Home, Self Care Discharge Date/Time: 07/19/25 13:37
[2025-07-19 13:03] VITALS: BP 166/73; PULSE 64; O2SAT 97
[2025-07-19 13:10] VITALS: BMI 31.1
[2025-07-19 13:35] VITALS: BP 166/73; PULSE 64; RESP 18; TEMP 35.5; O2SAT 97
--- NOTE | 2025-07-19 13:37 | ED.RN ---
NIH done by this RN is a score of 0.
== END 2025-07-19 13:37 | disposition home or self-care (01) ==
PROVIDERS: Emergency Provider Student in an Organized Health Care Education/Training Program; PCP Internal Medicine; Visit Provider Student in an Organized Health Care Education/Training Program
DX: G51.0 Bell's palsy (principal); E78.00 Pure hypercholesterolemia, unspecified; I25.10 Atherosclerotic heart disease of native coronary artery without angina pectoris; I10 Essential (primary) hypertension; Z79.82 Long term (current) use of aspirin; Z79.899 Other long term (current) drug therapy
CPT/HCPCS: 99282

== ENCOUNTER → 2025-07-20 | Outpatient (CLI) | payer MEDICARE, OTHER, SELFPAY ==
--- NOTE | 2025-07-20 12:56 | CDU_ITS ---
Reason For Study Reason For Study: Diplopia Rt. Velocities/BP Lt. Velocities/BP Prox CCA 105.8/8 cm/sec. Prox CCA 95.7/7.8 cm/sec. Mid CCA 88.3/6.9 cm/sec. Mid CCA 77.8/6 cm/sec. Dist CCA 80.6/9.1 cm/sec. Dist CCA 75.9/8.8 cm/sec. Prox ICA 48.7/9.1 cm/sec. Prox ICA 90/9 cm/sec. Mid ICA 51.3/9.7 cm/sec. Mid ICA 55.6/9 cm/sec. Dist ICA 61.7/9.7 cm/sec. Dist ICA 60.5/7.7 cm/sec. Rt. ICA/CCA = 0.70. Lt. ICA/CCA = 1.16. Prox ECA 118.2/5.3 cm/sec. Prox ECA 114.6/9 cm/sec. Rt. Vert. 26.5/3.1 cm/sec. Lt. Vert. 50.7/7.7 cm/sec. Right Extracranial There is homogeneous, smooth atherosclerotic plaque noted in the right common carotid artery. There is heterogeneous, irregular atherosclerotic plaque noted in the right internal carotid artery. There is heterogeneous, irregular atherosclerotic plaque noted in the right external carotid artery. Antegrade flow is noted in the right vertebral artery. Left Extracranial There is heterogeneous, irregular atherosclerotic plaque noted in the left common carotid artery. There is heterogeneous, irregular atherosclerotic plaque noted in the left internal carotid artery. There is heterogeneous, irregular atherosclerotic plaque noted in the left external carotid artery. Antegrade flow is noted in the left vertebral artery. Procedure This is a Carotid Duplex examination using B-mode, color flow and specral Doppler. Carotid Duplex [id number]. Exam performed in department. VL/Carotid Duplex Ultrasound Interpretation Summary Mild (<50%) stenosis right extracranial internal carotid. Mild (<50%) stenosis left extracranial internal carotid. Patent and antegrade vertebrals bilaterally. Ordering Physician: Jaspal Ramírez Referring Physician: Uma Marmolejo M.D. Performed By: Shara Gunderson RVT
--- NOTE | 2025-07-20 13:01 | MRI_ITS ---
PROCEDURE: BRAIN WITHOUT CONTRAST 07/20/2025 REASON FOR EXAM: Clinical history of diplopia. TECHNIQUE: Procedure Code: MRIBR Modality: MR Procedure: BRAIN WITHOUT CONTRAST Multiplanar and multisequence images were obtained. COMPARISON: None available FINDINGS: Patient declined IV contrast. The ocular globes are normal in contour. Bilateral ocular lens replacements with the implanted lens in normal anatomical location. The optic nerves, optic chiasm, optic tracts appear within normal limits. The extraocular muscles, orbital fat, and lacrimal glands are unremarkable. No evidence of mass in the orbits. The pituitary gland is unremarkable. The infundibulum is midline. No acute infarct or hemorrhage. Nonspecific foci of periventricular and subcortical T2/FLAIR white matter hyperintensities in the cerebral hemispheres likely reflect chronic microvascular ischemic changes. No extra-axial fluid collection.No significant mass effect or herniation of the brain.Global cerebral volume loss. No hydrocephalus. The basal cisterns are patent. The intracranial large vessel arterial flow voids are maintained. The mastoid air cells clear. There is scattered paranasal mucosal thickening. The calvarial bone marrow signal is within normal limits. MRI/Brain without Contrast IMPRESSION: 1. Unremarkable noncontrast MRI of the orbits. 2. No acute infarct or hemorrhage. Reading Location: [id number]
== END | disposition home or self-care (01) ==
LOC: MRI 12:56
PROVIDERS: PCP Internal Medicine; Referring Provider Ophthalmology; Visit Provider Ophthalmology
DX: H53.2 Diplopia (principal)
CPT/HCPCS: 70551; 93880